=== PATIENT | female | born 1955 | race Caucasian/White ===

== ENCOUNTER 2017-12-22 22:44 | Inpatient (IN) | payer OTHER ==
[~2017-12-22] VITALS: Ht 154.9 cm; Wt 55.3 kg
[2017-12-22 23:35] VITALS: BP_SYST 120; BP_SYST 97; BP_DIAS 60; BP_DIAS 64
[2017-12-22 23:52] VITALS: BP 120/60
[2017-12-23] VITALS (7 sets, daily range): BP systolic 80–133; BP diastolic 58–79
[2017-12-23] MEDS: DOXYCYCLINE 100MG/NS 100ML 100 ML IV SCH ×2 (00:15→12:56)
[2017-12-23] MEDS ORDERED: DOCUSATE SODIU100 MG PO (01:38)
[2017-12-23] MEDS ORDERED: CLONAZEPAM1 MG PO (01:38)
[2017-12-23] MEDS ORDERED: ISOSORBIDE MONO20 MG PO (01:38)
[2017-12-23] MEDS ORDERED: CLONIDINE HCL0.1 MG PO (01:38)
[2017-12-23] MEDS ORDERED: BUPROPION HCL100 MG PO (01:38)
[2017-12-23] MEDS ORDERED: ADVAIR 250-501 EACH INH (01:38)
[2017-12-23] MEDS ORDERED: NIFEDIPINE10 MG PO (01:38)
[2017-12-23] MEDS ORDERED: ALBUTEROL0.63 MG/3 INH (01:38)
[2017-12-23] MEDS ORDERED: HYDRALAZINE HCL10 MG PO (01:38)
[2017-12-23] MEDS ORDERED: TRAMADOL HCL100 MG PO (01:38)
[2017-12-23] MEDS ORDERED: GABAPENTIN300 MG PO (01:38)
[2017-12-23] MEDS ORDERED: NEXIUM40 MG PO (01:38)
[2017-12-23] MEDS ORDERED: POTASSIUM CHLO10 MEQ PO (01:38)
[2017-12-23] MEDS: TRAMADOL HCL 50 MG TAB PO PRN ×3 (03:45→21:22)
[2017-12-23] MEDS: ALBUTEROL/IPRATROPIUM 3 ML NEB NEB SCH ×4 (03:55→19:25)
[2017-12-23 05:53] LABS: BASOPHILS % 0.2 % (0.0-1.0); HEMATOCRIT 26.1 % (34.2-44.1); HEMOGLOBIN 8.1 g/dL (12.0-16.0); LYMPHOCYTES # (AUTO) 0.3 (1.0-3.2); LYMPHOCYTES % 4.8 % (18.0-39.1); MEAN CORPUSCULAR HEMOGLOBIN 27.8 pg (28-32); MEAN CORPUSCULAR VOLUME 89.7 fL (81-99); MONOCYTES # (AUTO) 0.1 (0.2-0.8); MONOCYTES % 0.9 % (4.4-11.3); NEUTROPHILS # (AUTO) 5.3 (2.1-6.9); NEUTROPHILS % 93.6 % (38.7-80.0); PLATELET COUNT 202 x10e3/uL (140-360); RED BLOOD COUNT 2.91 x10e6/uL (3.6-5.1); RED CELL DISTRIBUTION WIDTH 20.5 % (11.7-14.4)
[2017-12-23 06:20] LABS: ALANINE AMINOTRANSFERASE 10 IU/L (0-55); ALBUMIN 3.2 g/dL (3.5-5.0); ALBUMIN/GLOBULIN RATIO 0.9 (0.8-2.0); ALKALINE PHOSPHATASE 86 IU/L (40-150); ANION GAP 16.9 mmol/L (8-16); BLOOD UREA NITROGEN 26 mg/dL (7-26); BUN/CREATININE RATIO 29 (6-25); CALCIUM 9.4 mg/dL (8.4-10.2); CARBON DIOXIDE 29 mmol/L (22-29); CHLORIDE 95 mmol/L (98-107); EST GLOMERULAR FILTRATION RATE > 60 ML/MIN (60-); GLUCOSE 161 mg/dL (74-118); POTASSIUM 4.9 mmol/L (3.5-5.1); SODIUM 136 mmol/L (136-145)
[2017-12-23] MEDS: METHYLPREDNISOLONE SOD SUCC 40 MG/ML VIAL IV SCH ×2 (09:00→21:08)
[2017-12-23] MEDS: SALMETEROL/FLUTICASONE 250/50 INH SCH (09:00)
[2017-12-23] MEDS: FUROSEMIDE INJ 10 MG/ML 2 ML VIAL IV SCH ×2 (09:00→22:00)
[2017-12-23] MEDS: HYDRALAZINE HCL 10 MG TAB PO SCH ×4 (09:01→21:00)
[2017-12-23] MEDS: DOCUSATE SODIUM 100 MG CAP PO SCH (09:01)
[2017-12-23] MEDS: CLONAZEPAM 1 MG TAB PO SCH ×2 (09:02→17:00)
[2017-12-23] MEDS: BUPROPION HCL 75 MG TAB PO SCH ×2 (09:02→17:00)
[2017-12-23] MEDS: ISOSORBIDE MONONITRATE 30 MG TAB CR PO SCH (09:02)
[2017-12-23] MEDS: PANTOPRAZOLE SOD 40 MG TABEC PO SCH (09:02)
[2017-12-23] MEDS: GABAPENTIN 300 MG CAP PO SCH ×3 (09:02→22:00)
[2017-12-23] MEDS: NIFEDIPINE CR 30 MG TAB PO SCH (09:02)
[2017-12-23] MEDS: POTASSIUM CHLORIDE 10 MEQ TABCR PO SCH (09:03)
--- NOTE | 2017-12-23 13:03 | Consultation ---
DATE OF CONSULTATION: December 23, 2017 PULMONARY/CRITICAL CARE CONSULTATION REFERRING PHYSICIAN: Dr. Yadi Hayward HISTORY OF PRESENT ILLNESS: The patient is a 62-year-old woman with a history of COPD. She uses oxygen at home. She has Advair as well as Spiriva and nebulizer. Over the past several days, she noticed worsening dyspnea that was not relieved with the nebulizer. She went to an urgent care. They performed an AP chest x-ray that showed a right-sided pleural effusion and possible congestive heart failure. The patient reports some cough productive of small amounts of phlegm. There was no chest pain. She is not having any fevers. She does not have any nausea or vomiting. She is not having any leg edema. PAST MEDICAL HISTORY 1. COPD. 2. Gastroesophageal reflux. 3. Hypertension. 4. The patient specifically denies any history of pulmonary embolism or deep vein thrombi. 5. Patient specifically denies any history of heart disease. She has never been checked by a timber girdler. PAST SURGICAL HISTORY 1. Status post hip surgery 3 years ago. 2. Status post cholecystectomy. SOCIAL HISTORY: She quit smoking 5 years ago. She drinks a small amount of beer at home. FAMILY HISTORY: Negative. REVIEW OF SYSTEMS: The patient has no fever. She has no headache. She has no neck pain. She is not having a sore throat. She does note some dyspnea and some cough. She is not having chest pain. She denies any abdominal pain. There is no nausea or vomiting. She denies hematochezia or melena. She denies hematemesis. There is no leg swelling. She has no focal neurological complaints. PHYSICAL EXAMINATION VITALS: Blood pressure is 115/60, and the pulse is 115. The saturation is 100% on 3 liters. HEENT: Examination shows no facial swelling or erythema. Nasal mucosa is normal. The oropharynx is normal. LYMPHATIC: No submandibular, cervical or supraclavicular adenopathy. NECK: No JVD or thyromegaly. There is no nuchal rigidity. CARDIAC: Regular rate and rhythm with normal S1 and S2. There are no murmurs or rubs. LUNGS: Auscultation of the lungs reveals decreased breath sounds at the right base. ABDOMEN: Soft, nontender. There is no rebound or guarding. EXTREMITIES: No leg edema or calf tenderness. There is no cyanosis or clubbing. SKIN: No rashes. NEUROLOGIC: No focal abnormalities. RADIOGRAPHIC DATA: Chest x-ray shows an AP film with a small to moderate size right pleural effusion. LABORATORY DATA: An ABG from the urgent care shows pH of 7.54, CO2 of 36 and O2 of 47. Bicarbonate is 31.1. The hemoglobin is 8.1 with an MCV of 89. Platelet count is 202. White blood cell count is 5.6. The creatinine is 0.9, and the BUN is 26. The other electrolytes are within normal limits. Albumin is 3.2. IMPRESSION 1. Chronic obstructive pulmonary disease with acute exacerbation. 2. Right pleural effusion of unclear etiology. 3. Acute systolic congestive heart failure. 4. Anemia secondary to chronic blood loss. 5. Hypertension. PLAN 1. The patient will have a CT scan of the chest with a PE protocol to evaluate the new right pleural effusion and x-ray changes. 2. Depending on the results of the CT scan, she may require a thoracentesis. 3. Cardiology evaluation. 4. Continue Advair, Spiriva and bronchodilators. 5. Solu-Medrol and antibiotics. 6. Evaluation for anemia. Job#: [id number]
[2017-12-23] MEDS: MAGNESIUM/ALUMINUM/SIMETHICONE 30 ML UDC PO PRN (17:00)
--- NOTE | 2017-12-23 18:14 | Diagnostic Imaging Report ---
PROCEDURE:US GUIDANCE FOR VASCULAR ACCESS COMPARISON:None. INDICATIONS:No IV access FINDINGS:Ultrasound evaluation of potential access sites was performed. After successfully identifying a patent vessel, US guidance was used to puncture the vein. A permanent recording was created for the patient record. CONCLUSION:Successful IV access by Ultrasound guidance. Oretses Wayne M.D. Dictated by: Orestes Wayne M.D. on 12/23/2017 at 18:19 Electronically approved by: Orestes Wayne M.D. on 12/23/2017 at 18:19
--- NOTE | 2017-12-23 18:39 | Consultation ---
DATE OF CONSULTATION: December 23, 2017 CARDIOLOGY CONSULTATION REASON FOR CONSULTATION: Heart failure. HISTORY OF PRESENT ILLNESS: This is a 62-year-old woman with a history of hypertension, prior tobacco use, gastroesophageal reflux disease, who presented to the emergency department with worsening shortness of breath and chest pain. The patient states that over the last few days after visiting her daughter in [place] developed substernal chest pain, occasional chest pressure and tightness. Some times described as a sharp and stabbing pain and associated with some worsening shortness of breath. The patient states that her dyspnea has progressed over the last few days and is worse than her usual baseline shortness of breath. The patient was evaluated at an urgent care facility, and was noted to have a right-sided pleural effusion, and was admitted here for higher level of care. She has no past cardiovascular history. She denies any history of myocardial infarctions, coronary artery disease, or heart failure. Reports stress test many years ago. However, cannot provide me with the details of her symptoms. In addition to the above-stated symptoms, she reports increased ankle swelling as well. REVIEW OF SYSTEMS: A 12-point review of systems was conducted and is negative other than mentioned in the HPI. PAST MEDICAL HISTORY: Chronic obstructive pulmonary disease, gastroesophageal reflux disease, hypertension. PAST SURGICAL HISTORY: Orthopedic hip surgery, cholecystectomy. FAMILY HISTORY: No premature CAD. SOCIAL HISTORY: Significant tobacco use in the past. Quit 5 years ago. Occasional alcohol use. No illicit drug use. ALLERGIES: PENICILLIN, CODEINE. MEDICATIONS: See medication reconciliation form. PHYSICAL EXAMINATION VITALS: Heart rate is 115, respirations 20, blood pressure 115/60, oxygen saturation is 100% on 3 L nasal cannula. GENERAL: She is a thin woman lying comfortably in bed. HEENT: Head is normocephalic and atraumatic. Eyes: Extraocular muscles intact. Conjunctivae are clear. NECK: No JVD. No bruits. CARDIOVASCULAR: She is tachycardic. Regular rhythm. No murmurs. Normal S1 and S2. LUNGS: Diminished breath sounds at bilateral bases with decreased air excursion. ABDOMEN: Soft, nontender and nondistended. EXTREMITIES: There is trace edema over the ankles. SKIN: Warm, dry and intact. NEUROLOGIC: No focal deficits noted. Cranial nerves grossly intact. PSYCHIATRIC: Normal mood and affect. LABORATORY DATA: White blood cell count 5.6, hemoglobin 8.1 and platelets 202,000. Sodium 136, potassium 4.9, creatinine 0.9. Normal liver function tests. Negative cardiac enzymes. BNP is 1090. Chest x-ray shows small to moderate right-sided pleural effusion. A 12-lead electrocardiogram shows sinus tachycardia with left axis deviation. IMPRESSION AND RECOMMENDATIONS 1. Shortness of breath: The patient likely has a component of acute heart failure of unknown type. Will check a 2-D echocardiogram to assess left ventricular function. The patient has been initiated on Lasix 20 mg intravenously q.12 h. and will continue this, and monitor her daily creatinine, electrolyte levels and her urinary output. Differential etiology likely could be related to her chronic obstructive pulmonary disease and/or right pleural effusion. A computerized tomography of the chest has been ordered to rule out pulmonary embolism, and assess the size of the pleural effusion. Will defer the need for thoracentesis to primary team. 2. Precordial pain: The patient has significant risk factors for coronary artery disease. First set of cardiac enzymes were within normal limits. A 12-lead electrocardiogram showed no acute S/T changes. Will check one additional set to rule out an acute myocardial infarction. Again, will check 2-D echocardiogram to assess left ventricular systolic function. 3. Hypertension: The patient is normotensive on current home medications, including nifedipine, isosorbide mononitrate, and clonidine at night. Would recommend discontinuation of clonidine and can titrate all other medications. 4. Anemia: Will defer treatment to primary team. No evidence of bleeding. Thank you for the consultation. Will check a 2-D echocardiogram to assess left ventricular function. Continue diuresis with intravenous Lasix. Job#: [id number] LIZ
[2017-12-23 19:23] LABS: CREATINE KINASE MB 0.9 ng/mL (0-5.0)
--- NOTE | 2017-12-23 19:27 | Diagnostic Imaging Report ---
PROCEDURE: CT scan of the chest WITH intravenous contrast, using standard protocol. TECHNIQUE: The chest was scanned utilizing a multidetector helical scanner from the lung apex through the level of the adrenal glands after the IV administration of 67 cc of Isovue 370. Coronal and sagittal multiplanar reformations were obtained. COMPARISON: None. INDICATIONS: PLEURAL EFFUSION, COPD, CONGESTIVE HEART FAILURE FINDINGS: Exam limited by mild breathing motion artifact. Lines/tubes: None. Lungs and Airways: No filling defects in the main, right or left pulmonary arteries to their segmental level to suggest pulmonary embolism. Unable to evaluate subsegmental levels. Moderate bilateral centrilobular emphysematous changes, predominantly in the upper lobes. Diffuse interlobular septal thickening in bilateral upper and lower lobes. Compressive atelectasis of the lower lobes bilaterally, right greater than left. Mild to moderate bronchial wall thickening in bilateral lower lobes. Airways are clear, without endobronchial lesions. Pleura: Small to moderate right pleural effusion which is partly loculated, with small amount of fluid in the major fissure (series 3, image 70). Small left pleural effusion. No pneumothorax. Heart and mediastinum: Thyroid is unremarkable. Moderate cardiomegaly with enlargement of both atria. Atherosclerotic calcification of the coronary arteries, aortic valves, thoracic aorta and mitral annulus. Main pulmonary artery is mildly enlarged, measuring 3.1 cm. Aorta is non-aneurysmal. Lymph nodes: Mildly enlarged subcarinal lymph node, which measures 1.3 cm in short axis (series 2, image 49). No other mediastinal or any hilar or axillary adenopathy. Abdomen: Limited contrast-enhanced views of the upper abdomen show no abnormality within the visualized liver, pancreas, or kidneys. Splenic calcified granulomas. The adrenal glands are normal. Moderate atherosclerotic calcification of the visualized abdominal aorta Bones: Multilevel degenerative disc changes in the thoracic spine. Generalized osteopenia. Mild decreased height of the T11 vertebral body. IMPRESSION: 1. No CT evidence of pulmonary embolism to the segmental level. Unable to assess subsegmental levels due to mild breathing motion artifact. 2. Diffuse interlobular septal thickening bilateral upper and lower lobes, suggesting interstitial pulmonary edema, likely cardiogenic given the moderate cardiomegaly/atrial enlargement. 3. Small to moderate right pleural effusion which is partly loculated. Small left pleural effusion. Compressive atelectasis of bilateral lower lobes, right greater than left. 4. Moderate diffuse bilateral centrilobular emphysematous changes, predominantly in the upper lobes. 5. Mild to moderate bronchial wall thickening in bilateral lower lobes, which may reflect sequela of chronic bronchitis. 6. Mild enlargement of the main pulmonary artery, likely reflecting pulmonary hypertension. Orestes Wayne M.D. Dictated by: Orestes Wayne M.D. on 12/23/2017 at 19:31 Electronically approved by: Orestes Wayne M.D. on 12/23/2017 at 19:31
[2017-12-23] MEDS ORDERED: CLONIDINE HCL 0.1 MG TAB PO SCH (21:00)
[2017-12-24] VITALS (7 sets, daily range): BP systolic 102–122; BP diastolic 63–79
[2017-12-24] MEDS ORDERED: SODIUM CHLORIDE 0.9% 50ML 50 ML ONE (00:37)
[2017-12-24] MEDS ORDERED: IOPAMIDOL 370 MG/ML 200 ML INFUS..BTL INJ ONE (00:38)
[2017-12-24] MEDS: DOXYCYCLINE 100MG/NS 100ML 100 ML IV SCH ×2 (00:45→12:48)
[2017-12-24] MEDS: ALBUTEROL/IPRATROPIUM 3 ML NEB NEB SCH ×4 (01:30→19:20)
[2017-12-24 05:50] LABS: HEMATOCRIT 26.2 % (34.2-44.1); LYMPHOCYTES # (AUTO) 0.4 (1.0-3.2); LYMPHOCYTES % 5.2 % (18.0-39.1); MEAN CORPUSCULAR HEMOGLOBIN 27.9 pg (28-32); MEAN CORPUSCULAR HGB CONC 30.5 g/dL (31-35); MEAN CORPUSCULAR VOLUME 91.3 fL (81-99); MONOCYTES # (AUTO) 0.3 (0.2-0.8); NEUTROPHILS # (AUTO) 6.3 (2.1-6.9); NEUTROPHILS % 90.1 % (38.7-80.0); PLATELET COUNT 239 x10e3/uL (140-360); RED BLOOD COUNT 2.87 x10e6/uL (3.6-5.1); RED CELL DISTRIBUTION WIDTH 20.5 % (11.7-14.4)
[2017-12-24 06:18] LABS: ALANINE AMINOTRANSFERASE 11 IU/L (0-55); ALBUMIN 3.3 g/dL (3.5-5.0); ALKALINE PHOSPHATASE 79 IU/L (40-150); ANION GAP 14.9 mmol/L (8-16); BLOOD UREA NITROGEN 32 mg/dL (7-26); BUN/CREATININE RATIO 36 (6-25); CALCIUM 9.7 mg/dL (8.4-10.2); CARBON DIOXIDE 34 mmol/L (22-29); CHLORIDE 94 mmol/L (98-107); CREATININE, SERUM 0.88 mg/dL (0.57-1.11); EST GLOMERULAR FILTRATION RATE > 60 ML/MIN (60-); GLUCOSE 106 mg/dL (74-118); POTASSIUM 4.9 mmol/L (3.5-5.1); SODIUM 138 mmol/L (136-145)
[2017-12-24] MEDS: TRAMADOL HCL 50 MG TAB PO PRN (06:47)
[2017-12-24] MEDS: FUROSEMIDE INJ 10 MG/ML 4 ML VIAL IV SCH ×2 (08:24→22:00)
[2017-12-24] MEDS: HYDRALAZINE HCL 10 MG TAB PO SCH (08:24)
[2017-12-24] MEDS: METHYLPREDNISOLONE SOD SUCC 40 MG/ML VIAL IV SCH ×2 (08:24→22:00)
[2017-12-24] MEDS: CLONAZEPAM 1 MG TAB PO SCH ×2 (08:25→17:35)
[2017-12-24] MEDS: DOCUSATE SODIUM 100 MG CAP PO SCH (08:25)
[2017-12-24] MEDS: PANTOPRAZOLE SOD 40 MG TABEC PO SCH (08:25)
[2017-12-24] MEDS: NIFEDIPINE CR 30 MG TAB PO SCH (08:25)
[2017-12-24] MEDS: GABAPENTIN 300 MG CAP PO SCH ×3 (08:25→21:28)
[2017-12-24] MEDS: ISOSORBIDE MONONITRATE 30 MG TAB CR PO SCH (08:25)
[2017-12-24] MEDS: POTASSIUM CHLORIDE 10 MEQ TABCR PO SCH (08:25)
[2017-12-24] MEDS: BUPROPION HCL 75 MG TAB PO SCH ×2 (08:25→17:35)
[2017-12-24] MEDS: MORPHINE SULFATE 2 MG/ML SYR IV PRN ×3 (08:53→20:25)
[2017-12-24] MEDS: SALMETEROL/FLUTICASONE 250/50 INH SCH (13:45)
[2017-12-25 00:10] VITALS: BP 102/88
[2017-12-25] MEDS: DOXYCYCLINE 100MG/NS 100ML 100 ML IV SCH ×3 (00:45→23:45)
[2017-12-25] MEDS: ZOLPIDEM TARTRATE 10 MG TAB PO PRN (00:45)
[2017-12-25] MEDS: ALBUTEROL/IPRATROPIUM 3 ML NEB NEB SCH ×4 (00:45→19:35)
--- NOTE | 2017-12-25 01:14 | Diagnostic Imaging Report ---
EXAMINATION: CHEST XRAY LINE PLACEMENT INDICATION: PICC line placement. COMPARISON: None FINDINGS: TUBES and LINES: Right upper extremity PICC line is visualized with tip overlying the mid SVC. LUNGS: Lungs are not well inflated. There are bibasilar atelectasis. There is mild prominence of the central pulmonary vasculature, consistent with pulmonary venous congestion. Interlobular septal thickening present in the lung bases. PLEURA: Bilateral pleural effusions right greater than left. HEART AND MEDIASTINUM: Cardiac size is moderately enlarged. There are atherosclerotic calcifications within the aorta. BONES AND SOFT TISSUES: No acute osseous lesion. Soft tissues are unremarkable. UPPER ABDOMEN: No free air under the diaphragm. IMPRESSION: Evidence of cardiogenic pulmonary edema and right pleural effusion. Right PICC line in good position. Signed by: Dr. Martin Jaquez M.D. on 12/25/2017 1:11 AM
[2017-12-25 04:59] VITALS: BP 105/85
[2017-12-25 05:01] LABS: HEMATOCRIT 24.4 % (34.2-44.1); HEMOGLOBIN 7.4 g/dL (12.0-16.0); LYMPHOCYTES # (AUTO) 0.3 (1.0-3.2); LYMPHOCYTES % 3.9 % (18.0-39.1); MEAN CORPUSCULAR HEMOGLOBIN 27.8 pg (28-32); MEAN CORPUSCULAR HGB CONC 30.3 g/dL (31-35); MEAN CORPUSCULAR VOLUME 91.7 fL (81-99); MONOCYTES # (AUTO) 0.2 (0.2-0.8); MONOCYTES % 2.4 % (4.4-11.3); NEUTROPHILS # (AUTO) 6.6 (2.1-6.9); PLATELET COUNT 246 x10e3/uL (140-360); RED BLOOD COUNT 2.66 x10e6/uL (3.6-5.1); RED CELL DISTRIBUTION WIDTH 20.4 % (11.7-14.4)
[2017-12-25 05:22] LABS: ALBUMIN 3.5 g/dL (3.5-5.0); ANION GAP 13.6 mmol/L (8-16); CALCIUM 9.6 mg/dL (8.4-10.2); CREATININE, SERUM 1.07 mg/dL (0.57-1.11); MAGNESIUM 1.7 MG/DL (1.3-2.1); POTASSIUM 4.6 mmol/L (3.5-5.1)
[2017-12-25 06:30] LABS: LYMPHOCYTES % (MANUAL) 5 % (19-48); MONOCYTES % (MANUAL) 3 % (3.4-9.0); NEUTROPHILS % (MANUAL) 92 % (40-74); PLATELET ESTIMATE ADEQUATE; RBC MORPHOLOGY COMMENT NORMAL
[2017-12-25 06:31] LABS: PLATELET MORPHOLOGY COMMENT NORMAL
--- NOTE | 2017-12-25 07:00 | Diagnostic Imaging Report ---
EXAMINATION: CHEST 2 VIEWS INDICATION: Congestive heart failure. COMPARISON: 12/25/2017 at 0026 hours FINDINGS: TUBES and LINES: Right upper extremity PICC line is in good position/stable LUNGS: Lungs are not well inflated. Bibasilar atelectasis There is mild prominence of the central pulmonary vasculature, consistent with pulmonary venous congestion. Interlobular septi thickening noted in the lung bases. PLEURA: Stable right pleural effusion, moderate HEART AND MEDIASTINUM: Cardiac size is mildly enlarged. There are atherosclerotic calcifications within the aorta. BONES AND SOFT TISSUES: No acute osseous lesion. Soft tissues are unremarkable. UPPER ABDOMEN: No free air under the diaphragm. IMPRESSION: Findings are compatible with mild cardiomegaly pulmonary edema, right pleural effusion and bibasilar atelectasis. Signed by: Dr. Martin Jaquez M.D. on 12/25/2017 6:56 AM
[2017-12-25] MEDS: SALMETEROL/FLUTICASONE 250/50 INH SCH (07:20)
[2017-12-25] MEDS ORDERED: SODIUM CHLORIDE 0.9% 250ML 250 ML IV ONE (07:45)
[2017-12-25 08:12] VITALS: BP 121/80
[2017-12-25] MEDS: BUPROPION HCL 75 MG TAB PO SCH ×2 (08:30→17:00)
[2017-12-25] MEDS: POTASSIUM CHLORIDE 10 MEQ TABCR PO SCH (08:30)
[2017-12-25] MEDS: DOCUSATE SODIUM 100 MG CAP PO SCH (08:30)
[2017-12-25] MEDS: GABAPENTIN 300 MG CAP PO SCH ×3 (08:30→21:00)
[2017-12-25] MEDS: METHYLPREDNISOLONE SOD SUCC 40 MG/ML VIAL IV SCH ×2 (08:30→21:00)
[2017-12-25] MEDS: PANTOPRAZOLE SOD 40 MG TABEC PO SCH (08:30)
[2017-12-25] MEDS: MORPHINE SULFATE 2 MG/ML SYR IV PRN ×3 (08:30→19:42)
[2017-12-25] MEDS: LISINOPRIL 10 MG TAB PO SCH (08:30)
[2017-12-25] MEDS: CLONAZEPAM 1 MG TAB PO SCH ×2 (08:30→17:00)
[2017-12-25] MEDS: FUROSEMIDE INJ 10 MG/ML 4 ML VIAL IV SCH ×2 (08:30→21:00)
[2017-12-25 11:39] LABS: HEMATOCRIT 23.7 % (34.2-44.1); HEMOGLOBIN 7.4 g/dL (12.0-16.0)
[2017-12-25 13:00] VITALS: BP 109/56
--- NOTE | 2017-12-25 13:05 | Progress Note ---
DATE: PULMONARY/CRITICAL CARE PROGRESS NOTE SUBJECTIVE: The patient was negative about 400 mL yesterday. She still has some dyspnea and congestion. She still has cough and small amounts of phlegm production. PHYSICAL EXAMINATION: VITAL SIGNS: The patient is afebrile. The blood pressure is 107/63 with the pulse 106. Saturation is 100% on 4 liters. HEENT: Shows no facial swelling or erythema. The oropharynx is normal. LYMPHATIC: Shows no submandibular, cervical, or supraclavicular adenopathy. CARDIAC: Reveals a regular rate and rhythm with a normal S1 and S2. There are no murmurs or rubs. LUNGS: Auscultation of the lungs reveals rhonchus breath sounds with wheezing bilaterally. ABDOMEN: Soft and nontender. There is no rebound or guarding. EXTREMITIES: Shows no leg edema or calf tenderness. Echocardiogram: There is some decreased left ventricular function with EF of about 45%. There is some tricuspid regurgitation and moderate pulmonary artery hypertension with an estimated systolic pulmonary artery hypertension of 57. IMPRESSION: 1. Acute systolic congestive heart failure. 2. Chronic obstructive pulmonary disease with acute exacerbation. 3. Anemia secondary to chronic blood loss. PLAN: 1. Continue diuretics. 2. Complete cardiac evaluation. 3. Repeat chest x-ray on Wednesday; if the right pleural effusion has not resolved with diuretics by Wednesday, then a thoracentesis would be indicated. 4. Consider blood transfusion. 5. Evaluation for anemia. 6. Nutritional evaluation for protein-calorie malnutrition; malnutrition worsens the prognosis in chronic obstructive pulmonary disease. 7. Physical therapy. 8. Case discussed with patient. Job#: [id number]
[2017-12-25] MEDS ORDERED: SODIUM CHLORIDE 0.9% 250ML 250 ML ONE (13:34)
[2017-12-25] MEDS ORDERED: FUROSEMIDE INJ 10 MG/ML 2 ML VIAL IV ONE (15:00)
--- NOTE | 2017-12-25 16:50 | Progress Note ---
DATE: INTERNAL MEDICINE PROGRESS NOTE SUBJECTIVE: Patient is complaining of shortness of breath. Getting a blood transfusion because the hemoglobin was very low. PHYSICAL EXAMINATION VITAL SIGNS: Blood pressure is 109/56. Temperature is 96.1. Heart rate 112 per minute. Respiratory rate is 22 per minute. Oxygen saturation is 98%. HEART: Regular rhythm. Normal S1, S2 sounds. LUNGS: Clear bilaterally, but significantly decreased. EXTREMITIES: No evidence of cyanosis, edema or trauma. ABDOMEN: Soft. Nontender. No distention. No visceromegaly. LABS: On the BMP, sodium 137, potassium 4.6, chloride 92, CO2 36, BUN 37, creatinine 1.07. On the CBC, white blood count 7.11, hemoglobin 7.4, hematocrit 23.7, platelet count 246,000. AST is 18, ALT 13, total bilirubin 0.3, alkaline phosphatase 76. FINAL IMPRESSION 1. Acute anemia, rule out gastrointestinal bleed. 2. Chronic obstructive pulmonary disease exacerbation. 3. Acute renal failure. 4. Astli-rq-cvgkmej systolic congestive heart failure. PLAN OF TREATMENT: Patient is getting 2 units of PRBCs. We are going to recheck the hemoglobin and hematocrit tomorrow. We are going to get stool guaiac, iron, TIBC, ferritin, vitamin B12 and folic acid level. Gastroenterology consult with Dr. Chris Hayward. Continue albuterol and Atrovent q.6 h., doxycycline 100 mg IV twice a day, bupropion 150 mg twice a day, clonazepam 1 mg twice a day as needed, potassium chloride 10 mEq daily, furosemide 40 mg IV twice a day, Colace 100 mg daily, Advair 1 inhalation twice a day, Solu-Medrol 30 mg IV twice a day. Continue Protonix 40 mg daily, Ambien 10 mg at night p.r.n. for sleep, morphine 2 mg IV q.4 h. as needed, gabapentin 300 mg 3 times a day, magnesium aluminum silicate 20 mg q.8 h. as needed, lisinopril 5 mg daily. Job#: [id number]
[2017-12-25 16:58] VITALS: BP 97/73
[2017-12-25 17:12] LABS: FERRITIN 23.14 ng/mL (4.63-204.00)
[2017-12-25] MEDS: MAGNESIUM/ALUMINUM/SIMETHICONE 30 ML UDC PO PRN (17:19)
[2017-12-25] MEDS ORDERED: FUROSEMIDE INJ 10 MG/ML 2 ML VIAL ONE (19:26)
[2017-12-25 20:00] VITALS: BP 102/78
[2017-12-26] VITALS (9 sets, daily range): BP systolic 84–117; BP diastolic 67–94
[2017-12-26] MEDS: ZOLPIDEM TARTRATE 10 MG TAB PO PRN (00:19)
[2017-12-26] MEDS ORDERED: MAGNESIUM SULFATE 2GM/50ML 50 ML IV ONE (02:45)
[2017-12-26 05:55] LABS: HEMATOCRIT 32.1 % (34.2-44.1); HEMOGLOBIN 10.2 g/dL (12.0-16.0); LYMPHOCYTES # (AUTO) 0.3 (1.0-3.2); LYMPHOCYTES % 5.2 % (18.0-39.1); MEAN CORPUSCULAR HGB CONC 31.8 g/dL (31-35); MONOCYTES # (AUTO) 0.3 (0.2-0.8); MONOCYTES % 5.1 % (4.4-11.3); NEUTROPHILS # (AUTO) 5.8 (2.1-6.9); NEUTROPHILS % 88.6 % (38.7-80.0); PLATELET COUNT 236 x10e3/uL (140-360); RED BLOOD COUNT 3.64 x10e6/uL (3.6-5.1); RED CELL DISTRIBUTION WIDTH 18.6 % (11.7-14.4)
[2017-12-26 06:08] LABS: MEAN CORPUSCULAR VOLUME 88.2 fL (81-99)
[2017-12-26] MEDS: DIPHENHYDRAMINE HCL 25 MG CAP PO PRN ×2 (06:20→21:29)
[2017-12-26 06:32] LABS: ALBUMIN 3.6 g/dL (3.5-5.0); ALBUMIN/GLOBULIN RATIO 1.1 (0.8-2.0); ANION GAP 13.5 mmol/L (8-16); CALCIUM 9.9 mg/dL (8.4-10.2); CREATININE, SERUM 1.05 mg/dL (0.57-1.11); POTASSIUM 4.5 mmol/L (3.5-5.1)
[2017-12-26] MEDS: MORPHINE SULFATE 2 MG/ML SYR IV PRN ×2 (06:41→19:13)
[2017-12-26] MEDS: ALBUTEROL/IPRATROPIUM 3 ML NEB NEB SCH ×4 (07:16→19:40)
[2017-12-26] MEDS: SALMETEROL/FLUTICASONE 250/50 INH SCH (08:10)
[2017-12-26 08:34] LABS: % IRON SATURATION 15 % (15-50); IRON 79 ug/dL (50-170); TOTAL IRON BINDING CAPACITY 510 ug/dL (261-478); TRANSFERRIN 364 mg/dL (180-382)
[2017-12-26] MEDS ORDERED: BISACODYL 10 MG SUPP PR ONE (09:00)
[2017-12-26] MEDS: BUPROPION HCL 75 MG TAB PO SCH ×2 (09:10→17:00)
[2017-12-26] MEDS: LISINOPRIL 10 MG TAB PO SCH (09:10)
[2017-12-26] MEDS: PANTOPRAZOLE SOD 40 MG TABEC PO SCH (09:10)
[2017-12-26] MEDS: POTASSIUM CHLORIDE 10 MEQ TABCR PO SCH (09:10)
[2017-12-26] MEDS: CLONAZEPAM 1 MG TAB PO SCH ×2 (09:10→17:00)
[2017-12-26] MEDS: FUROSEMIDE INJ 10 MG/ML 4 ML VIAL IV SCH ×2 (09:10→20:59)
[2017-12-26] MEDS: DOCUSATE SODIUM 100 MG CAP PO SCH (09:10)
[2017-12-26] MEDS: GABAPENTIN 300 MG CAP PO SCH ×3 (09:10→20:59)
[2017-12-26] MEDS: METHYLPREDNISOLONE SOD SUCC 40 MG/ML VIAL IV SCH ×2 (09:10→20:59)
[2017-12-26 09:16] LABS: LYMPHOCYTES % (MANUAL) 7 % (19-48); MONOCYTES % (MANUAL) 3 % (3.4-9.0); NEUTROPHILS % (MANUAL) 90 % (40-74); PLATELET ESTIMATE ADEQUATE; PLATELET MORPHOLOGY COMMENT NORMAL; RBC MORPHOLOGY COMMENT NORMAL
[2017-12-26] MEDS: DOXYCYCLINE 100MG/NS 100ML 100 ML IV SCH ×2 (11:45→22:39)
--- NOTE | 2017-12-26 15:49 | Progress Note ---
DATE: INTERNAL MEDICINE PROGRESS NOTE SUBJECTIVE: The patient is doing well with no significant complaint. PHYSICAL EXAMINATION VITAL SIGNS: Blood pressure 103/83. Temperature 96.4. Heart rate 109 per minute. Respiratory rate is 18 per minute. Oxygen saturation 95%. HEART: Regular rhythm. Normal S1 and S2 sounds. LUNGS: Decreased breath sounds bilaterally. ABDOMEN: Soft. BLOOD WORK: We have BMP with sodium 137, potassium 4.5, chloride 91, CO2 37, BUN 42, creatinine 1.05. Glucose 199. On the CBC, white blood count 6.50, hemoglobin 10.2, hematocrit 32.1, platelet count 236,000. ALT 26, ALT 19, total bilirubin 0.4, alkaline phos 95. FINAL IMPRESSION 1. Chronic obstructive pulmonary disease exacerbation. 2. History of chronic anemia, status post blood transfusion. 3. Irvmp-kw-fqvkvgs renal failure. 4. Unzho-ih-lnavaun systolic congestive heart failure. PLAN OF TREATMENT: Continue albuterol and Atrovent q.6 hours and doxycycline 100 mg IV twice a day. Continue bupropion 150 mg twice a day. Continue clonazepam 1 mg twice a day as needed for anxiety, potassium chloride 10 mEq daily, furosemide 40 mg IV twice a day, Benadryl 25 mg q.4 h. as needed for itching, Colace 100 mg daily, Advair 1 inhalation twice a day, methylprednisolone 30 mg IV twice a day, Protonix 40 mg daily, Ambien 10 mg at night p.r.n. for sleep, morphine 2 mg IV q.4 h. as needed, gabapentin 300 mg 3 times a day, magnesium aluminum silicate 20 mg q.8 h. as needed and lisinopril [address] Cervantes will resume the care tomorrow starting at 7 a.m. Job#: [id number]
[2017-12-26] MEDS ORDERED: SODIUM CHLORIDE 0.9% 250ML 250 ML ONE (21:18)
[2017-12-27] VITALS (8 sets, daily range): BP systolic 105–128; BP diastolic 66–88
[2017-12-27] MEDS: ALBUTEROL/IPRATROPIUM 3 ML NEB NEB SCH ×4 (00:45→18:52)
[2017-12-27] MEDS: MORPHINE SULFATE 2 MG/ML SYR IV PRN ×4 (01:29→21:00)
[2017-12-27 06:21] LABS: ANION GAP 12.2 mmol/L (8-16); BLOOD UREA NITROGEN 41 mg/dL (7-26); BUN/CREATININE RATIO 49 (6-25); CALCIUM 9.2 mg/dL (8.4-10.2); CARBON DIOXIDE 37 mmol/L (22-29); CHLORIDE 91 mmol/L (98-107); CREATININE, SERUM 0.83 mg/dL (0.57-1.11); EST GLOMERULAR FILTRATION RATE > 60 ML/MIN (60-); GLUCOSE 120 mg/dL (74-118); POTASSIUM 5.2 mmol/L (3.5-5.1); SODIUM 135 mmol/L (136-145)
[2017-12-27] MEDS: SALMETEROL/FLUTICASONE 250/50 INH SCH (07:30)
[2017-12-27] MEDS: POTASSIUM CHLORIDE 10 MEQ TABCR PO SCH (09:00)
[2017-12-27] MEDS: LISINOPRIL 10 MG TAB PO SCH (09:00)
[2017-12-27] MEDS: BUPROPION HCL 75 MG TAB PO SCH ×2 (09:00→17:20)
[2017-12-27] MEDS: CLONAZEPAM 1 MG TAB PO SCH ×2 (09:00→17:20)
[2017-12-27] MEDS: GABAPENTIN 300 MG CAP PO SCH ×3 (09:00→21:07)
[2017-12-27 10:14] LABS: BASOPHILS % 0.1 % (0.0-1.0); HEMATOCRIT 31.6 % (34.2-44.1); LYMPHOCYTES # (AUTO) 0.3 (1.0-3.2); LYMPHOCYTES % 4.8 % (18.0-39.1); MEAN CORPUSCULAR HEMOGLOBIN 28.7 pg (28-32); MEAN CORPUSCULAR HGB CONC 31.6 g/dL (31-35); MEAN CORPUSCULAR VOLUME 90.5 fL (81-99); MONOCYTES # (AUTO) 0.3 (0.2-0.8); MONOCYTES % 4.2 % (4.4-11.3); NEUTROPHILS # (AUTO) 6.4 (2.1-6.9); NEUTROPHILS % 90.5 % (38.7-80.0); PLATELET COUNT 228 x10e3/uL (140-360); RED BLOOD COUNT 3.49 x10e6/uL (3.6-5.1); RED CELL DISTRIBUTION WIDTH 18.5 % (11.7-14.4)
[2017-12-27] MEDS: FUROSEMIDE INJ 10 MG/ML 4 ML VIAL IV SCH ×2 (10:18→20:48)
[2017-12-27] MEDS: METHYLPREDNISOLONE SOD SUCC 40 MG/ML VIAL IV SCH ×2 (10:18→21:07)
[2017-12-27] MEDS ORDERED: FUROSEMIDE INJ 10 MG/ML 4 ML VIAL IV ONE (10:30)
[2017-12-27] MEDS: DOXYCYCLINE 100MG/NS 100ML 100 ML IV SCH (12:00)
--- NOTE | 2017-12-27 12:07 | Diagnostic Imaging Report ---
PROCEDURE: Frontal and lateral views of the chest. COMPARISON: None. INDICATIONS: CHF, COPD FINDINGS: Lines/tubes: Right sided PICC terminating near the cavoatrial junction. Lungs: Persistent mild perihilar opacities, consistent with mild interstitial edema. Patchy opacity in the right lower lung is again seen. Dependent left basilar atelectasis. Pleura: Persistent moderate right pleural effusion. Heart and mediastinum: The cardiomediastinal silhouette is unchanged. Bones: No acute bony abnormality. IMPRESSION: Persistent mild pulmonary interstitial edema and moderate right pleural effusion. Dependent bibasilar opacities likely atelectasis. Superimposed aspiration or pneumonia is possible in the right lower lobe in the appropriate clinical setting. Dictated by: ADITI TORRES M.D. on 12/27/2017 at 12:11 Electronically approved by: ADITI TORRES M.D. on 12/27/2017 at 12:11
--- NOTE | 2017-12-27 13:40 | Consultation ---
DATE OF CONSULTATION: December 27, 2017 CARDIOLOGY CONSULTATION REASON FOR CONSULTATION: Preoperative evaluation for EGD. CHIEF COMPLAINT: Chest pain and shortness of breath. HPI: Patient is a 62-year-old white female with an 80+ pack year smoking history and COPD on home oxygen, who initially presented to the hospital with COPD exacerbation. During this admission, her hemoglobin dropped from around 10 down to 7 acutely, and for this she is to undergo an EGD. We are consulted to assess her preoperative cardiovascular risk for her EGD. She denies any active chest pain. She does report shortness of breath. However, this is her baseline due to her severe COPD. She does endorse having chest pain at home intermittently. However, she only has this when she is eating during swallowing. It is not associated with exertion. She does not have any previous history of CAD, valvular heart disease or CHF. PAST MEDICAL HISTORY 1. COPD, on home oxygen. 2. Gastroesophageal reflux disease. 3. Hypertension. PAST SURGICAL HISTORY 1. Hip surgery. 2. Cholecystectomy. FAMILY HISTORY: No history of early CAD. SOCIAL HISTORY: Patient is an 80+ pack year smoker. Quit smoking cigarettes 5 years ago, but continues to inhale the electronic cigarettes currently. She does report social alcohol use. Denies any illicit drug use. MEDICATIONS 1. Furosemide 40 mg IV q.12 h. 2. Lisinopril 5 mg daily. LAB DATA: Reviewed. Notable for hemoglobin of 10 which is stable from 10.2 yesterday after transfusion. Chemistry shows potassium of 5.2, normal creatinine and elevated glucose of 120. She BNP on presentation was over 3000. Cardiac enzymes were negative on admission. PHYSICAL EXAMINATION VITAL SIGNS: Temperature 97.4, heart rate 104, respiratory rate 20, blood pressure 118/72, and satting 95% on 3 L nasal cannula. HEENT: Eyes: Conjunctival pallor. Ears, nose, mouth, and throat: Normal mucosa. No pallor or bleeding. NECK: No jugular venous distention. MSK: Normal muscle tone and strength. No atrophy or abnormal movements. EXTREMITIES: No clubbing or cyanosis. SKIN: No venostasis changes or ulcers. GENERAL: Cachectic white female. CARDIOVASCULAR: PMI nondisplaced. Tachy but regular. S1 and S2. No murmur, rubs or gallop. Normal carotid pulses. Palpable femoral pulses. Palpable pedal pulse on the left. No peripheral edema. Some varicosities on bilateral lower extremities. RESPIRATORY: Mild respiratory distress. Lungs are clear to auscultation, but very poor air movements. ABDOMEN: Soft and nontender. No hepatosplenomegaly. NEURO AND PSYCH: Patient is alert and oriented to person, place and time and has a normal affect. ECG reviewed shows sinus bradycardia, heart rate 100. No ST/T changes concerning for ischemia. TELEMETRY DATA: Reviewed and shows sinus rhythm with no significant arrhythmias. Echocardiogram final read pending. However, preliminary shows EF of about 45% with moderate MR and moderate TR. ASSESSMENT AND PLAN 1. Acute systolic and diastolic congestive heart failure. 2. Chest pain. 3. Hypertension. PLAN: From a cardiovascular standpoint, patient is a low risk for perioperative cardiovascular events for EGD and is okay to proceed. Her chest pain is likely of GI origin given that only occurs with food intake. Her volume status has improved after being diuresed IV Lasix. Will continue to follow medical treatment of her congestive heart failure going forward. Thank you for this consult. Will continue to follow. Job#: [id number] LIZ
[2017-12-27] MEDS: PANTOPRAZOLE SOD 40 MG TABEC PO SCH (16:43)
[2017-12-27] MEDS: FLUCONAZOLE 200 MG/100 ML 100 ML IV SCH (16:43)
[2017-12-27] MEDS: DOCUSATE SODIUM 100 MG CAP PO SCH (16:43)
--- NOTE | 2017-12-27 17:02 | Operative Report ---
DATE OF PROCEDURE: December 27, 2017 REFERRING PHYSICIAN: Dr. Shanell Nails. PROCEDURE PERFORMED: Esophagogastroduodenoscopy with biopsies and esophageal brushings and esophageal dilatation. INDICATIONS FOR EGD: Dysphagia, heartburn indigestion, guaiac positive stools. MEDICATION: Patient was done under MAC. Please see anesthesiologist's note. PROCEDURE: With patient in the left lateral decubitus position, flexible fiberoptic Olympus gastroscope was introduced into the esophagus under direct visualization without any difficulty. Scattered whitish plaques were noted pretty much throughout the esophagus and brushings were obtained to rule out jacqueline. Esophagus was then dilated to a size 52-Cypriot Dupont. The scope was then advanced with ease into the stomach, traversing a small sliding hiatal hernia. There were some minuet tongues of velvety-red mucosa extending proximally from the GE junction. Those were not biopsied. The scope was then advanced with ease into the stomach and mucosa overlying the antrum on the body revealed some patchy erythema and [id number] edema and biopsies were obtained sent to stain for H. pylori. Pylorus appeared to be of normal contour and shape, intubated with ease and the scope was advanced all the way to the 2nd portion of the duodenum. The scope was then withdrawn slowly. Mucosa overlying the proximal 2nd portion and the duodenal bulb appeared to be within normal limits. The scope was then withdrawn back into the stomach and retroflexed. The mucosa overlying the fundus and the cardia appeared to be within normal limits. The scope was then straightened out. The stomach was decompressed. The scope was subsequently withdrawn. Patient tolerated the procedure well. IMPRESSION 1. Rule out jacqueline esophagitis. 2. Esophagus dilated to a size 52-Cypriot Dupont. 3. Small sliding hiatal hernia. 4. Gastritis, biopsied. Biopsy sent to stain for Helicobacter pylori. PLAN: Follow up histology. Initiate Diflucan 200 mg p.o. daily. Job#: [id number] BETHANY cc:SHANELL NAILS MD
[2017-12-27] MEDS ORDERED: PROPOFOL IV EMULSION 10 MG/ML 20 ML VIAL ONE (17:45)
[2017-12-27] MEDS ORDERED: LIDOCAINE HCL 2% LOCAL INJ 5 ML SDV VIAL INJ ONE (17:45)
[2017-12-28] VITALS (7 sets, daily range): BP systolic 110–125; BP diastolic 67–88
[2017-12-28] MEDS: DOXYCYCLINE 100MG/NS 100ML 100 ML IV SCH ×3 (00:16→23:30)
[2017-12-28] MEDS: ZOLPIDEM TARTRATE 10 MG TAB PO PRN ×2 (00:36→22:13)
[2017-12-28] MEDS: ALBUTEROL/IPRATROPIUM 3 ML NEB NEB SCH ×4 (02:22→19:00)
[2017-12-28 06:20] LABS: ANION GAP 13.7 mmol/L (8-16); BLOOD UREA NITROGEN 39 mg/dL (7-26); BUN/CREATININE RATIO 42 (6-25); CALCIUM 9.6 mg/dL (8.4-10.2); CARBON DIOXIDE 39 mmol/L (22-29); CHLORIDE 90 mmol/L (98-107); CREATININE, SERUM 0.93 mg/dL (0.57-1.11); EST GLOMERULAR FILTRATION RATE > 60 ML/MIN (60-); GLUCOSE 175 mg/dL (74-118); POTASSIUM 4.7 mmol/L (3.5-5.1); SODIUM 138 mmol/L (136-145)
[2017-12-28 06:50] LABS: BASOPHILS % 0.1 % (0.0-1.0); HEMATOCRIT 37.2 % (34.2-44.1); HEMOGLOBIN 11.3 g/dL (12.0-16.0); LYMPHOCYTES # (AUTO) 0.3 (1.0-3.2); LYMPHOCYTES % 2.8 % (18.0-39.1); MEAN CORPUSCULAR HEMOGLOBIN 27.9 pg (28-32); MEAN CORPUSCULAR HGB CONC 30.4 g/dL (31-35); MEAN CORPUSCULAR VOLUME 91.9 fL (81-99); MONOCYTES # (AUTO) 0.5 (0.2-0.8); MONOCYTES % 3.8 % (4.4-11.3); NEUTROPHILS # (AUTO) 11.4 (2.1-6.9); NEUTROPHILS % 92.7 % (38.7-80.0); PLATELET COUNT 277 x10e3/uL (140-360); RED BLOOD COUNT 4.05 x10e6/uL (3.6-5.1); RED CELL DISTRIBUTION WIDTH 18.3 % (11.7-14.4)
[2017-12-28] MEDS: SALMETEROL/FLUTICASONE 250/50 INH SCH (08:05)
[2017-12-28] MEDS: LISINOPRIL 10 MG TAB PO SCH (09:00)
[2017-12-28] MEDS: FUROSEMIDE INJ 10 MG/ML 4 ML VIAL IV SCH ×2 (09:22→20:44)
[2017-12-28] MEDS: DOCUSATE SODIUM 100 MG CAP PO SCH (09:23)
[2017-12-28] MEDS: BUPROPION HCL 75 MG TAB PO SCH ×2 (09:23→17:37)
[2017-12-28] MEDS: PANTOPRAZOLE SOD 40 MG TABEC PO SCH (09:23)
[2017-12-28] MEDS: POTASSIUM CHLORIDE 10 MEQ TABCR PO SCH (09:23)
[2017-12-28] MEDS: METHYLPREDNISOLONE SOD SUCC 40 MG/ML VIAL IV SCH ×2 (09:23→20:44)
[2017-12-28] MEDS: GABAPENTIN 300 MG CAP PO SCH ×3 (09:23→20:44)
[2017-12-28] MEDS: CLONAZEPAM 1 MG TAB PO SCH ×2 (09:23→17:37)
[2017-12-28] MEDS ORDERED: FUROSEMIDE INJ 10 MG/ML 4 ML VIAL IV NR ×2 (13:30→18:45)
[2017-12-28] MEDS: MORPHINE SULFATE 2 MG/ML SYR IV PRN ×2 (14:45→20:28)
[2017-12-28] MEDS: FLUCONAZOLE 200 MG/100 ML 100 ML IV SCH (16:03)
[2017-12-28] MEDS: FUROSEMIDE INJ 10 MG/ML 4 ML VIAL IV NR (18:42)
[2017-12-29] VITALS (8 sets, daily range): BP systolic 106–126; BP diastolic 69–93
[2017-12-29] MEDS: ALBUTEROL/IPRATROPIUM 3 ML NEB NEB SCH (00:20)
[2017-12-29 06:15] LABS: BASOPHILS % 0.1 % (0.0-1.0); HEMATOCRIT 34.5 % (34.2-44.1); HEMOGLOBIN 10.7 g/dL (12.0-16.0); LYMPHOCYTES # (AUTO) 0.4 (1.0-3.2); LYMPHOCYTES % 3.4 % (18.0-39.1); MEAN CORPUSCULAR HEMOGLOBIN 27.9 pg (28-32); MEAN CORPUSCULAR VOLUME 90.1 fL (81-99); MONOCYTES # (AUTO) 0.3 (0.2-0.8); MONOCYTES % 2.8 % (4.4-11.3); NEUTROPHILS # (AUTO) 10.3 (2.1-6.9); NEUTROPHILS % 92.9 % (38.7-80.0); PLATELET COUNT 232 x10e3/uL (140-360); RED BLOOD COUNT 3.83 x10e6/uL (3.6-5.1); RED CELL DISTRIBUTION WIDTH 18.2 % (11.7-14.4)
--- NOTE | 2017-12-29 06:28 | Diagnostic Imaging Report ---
EXAM: CHEST 2 VIEWS, PA and lateral INDICATION: Follow-up COPD, CHF COMPARISON: PA and lateral view of the chest December 27, 2017 FINDINGS: LINES/TUBES: Stable position of right approach PICC LUNGS: Persistent bibasilar atelectasis. Vascular congestion and mild interstitial edema. PLEURA: Stable small right and trace left pleural effusions. HEART AND MEDIASTINUM: Stable cardiomegaly. BONES AND SOFT TISSUES: No acute findings. IMPRESSION: No significant interval change. Signed by: Dr. Stephanie Daugherty M.D. on 12/29/2017 6:25 AM
[2017-12-29 06:34] LABS: ALANINE AMINOTRANSFERASE 30 IU/L (0-55); ALBUMIN 3.5 g/dL (3.5-5.0); ALBUMIN/GLOBULIN RATIO 1.1 (0.8-2.0); ALKALINE PHOSPHATASE 73 IU/L (40-150); ANION GAP 13.7 mmol/L (8-16); BLOOD UREA NITROGEN 37 mg/dL (7-26); BUN/CREATININE RATIO 41 (6-25); CALCIUM 9.4 mg/dL (8.4-10.2); CHLORIDE 85 mmol/L (98-107); EST GLOMERULAR FILTRATION RATE > 60 ML/MIN (60-); GLUCOSE 158 mg/dL (74-118); POTASSIUM 4.7 mmol/L (3.5-5.1); SODIUM 138 mmol/L (136-145)
[2017-12-29 06:36] LABS: CARBON DIOXIDE 44 mmol/L (22-29)
[2017-12-29 07:07] LABS: LYMPHOCYTES % (MANUAL) 3 % (19-48); MONOCYTES % (MANUAL) 7 % (3.4-9.0); NEUTROPHILS % (MANUAL) 90 % (40-74); PLATELET ESTIMATE ADEQUATE; PLATELET MORPHOLOGY COMMENT NORMAL; RBC MORPHOLOGY COMMENT ABNORMAL
[2017-12-29 07:08] LABS: ANISOCYTOSIS SLIGHT; HYPOCHROMASIA SLIGHT; OVALOCYTES FEW
[2017-12-29] MEDS: SALMETEROL/FLUTICASONE 250/50 INH SCH (07:35)
[2017-12-29] MEDS: DOCUSATE SODIUM 100 MG CAP PO SCH (08:30)
[2017-12-29] MEDS: GABAPENTIN 300 MG CAP PO SCH ×3 (08:30→20:22)
[2017-12-29] MEDS: FUROSEMIDE INJ 10 MG/ML 4 ML VIAL IV SCH (08:30)
[2017-12-29] MEDS: BUPROPION HCL 75 MG TAB PO SCH ×2 (08:30→17:00)
[2017-12-29] MEDS: CLONAZEPAM 1 MG TAB PO SCH ×2 (08:30→17:00)
[2017-12-29] MEDS: LISINOPRIL 10 MG TAB PO SCH (08:30)
[2017-12-29] MEDS: PANTOPRAZOLE SOD 40 MG TABEC PO SCH (08:30)
[2017-12-29] MEDS: METHYLPREDNISOLONE SOD SUCC 40 MG/ML VIAL IV SCH ×2 (08:30→20:21)
[2017-12-29] MEDS: MORPHINE SULFATE 2 MG/ML SYR IV PRN ×2 (08:35→17:15)
[2017-12-29] MEDS ORDERED: FUROSEMIDE INJ 10 MG/ML 4 ML VIAL IV ONE ×2 (09:45→19:15)
[2017-12-29] MEDS: DOXYCYCLINE 100MG/NS 100ML 100 ML IV SCH ×2 (11:33→23:45)
--- NOTE | 2017-12-29 14:03 | Progress Note ---
DATE: December 28, 2017 CARDIOLOGY PROGRESS NOTE SUBJECTIVE: Patient underwent EGD yesterday, found to have gastritis but no other obvious source of bleeding. REVIEW OF SYSTEMS: Patient reports some shortness of breath, pain upon swallowing, but otherwise review of systems is negative. OBJECTIVE VITAL SIGNS: Temperature 97.1, heart rate 107, respiratory rate 20, blood pressure 123/82, satting 98% on room air. GENERAL: Cachectic elderly white female. CARDIOVASCULAR: PMI nondisplaced. Tachycardic but regular S1 and S2. No murmur, rubs or gallops. Palpable carotid pulses, palpable femoral pulses, palpable pedal pulses. RESPIRATORY: In mild respiratory distress. Diffuse inspiratory and expiratory wheezing heard bilaterally. Diminished lung sounds right lower lobe. ABDOMEN: Soft, nontender, nondistended. No masses or hepatosplenomegaly. NEURO AND PSYCH: Patient is alert and oriented to person, place and time. Normal affect. LABORATORY DATA: Reviewed. Hemoglobin increased from 7.4 to 11.3 after transfusion. IMAGING: Imaging data reviewed. TELEMETRY: Telemetry data reviewed. Shows sinus rhythm with occasional sinus tachycardia. ASSESSMENT 1. Acute congestive heart failure. 2. Chronic obstructive pulmonary disease exacerbation. 3. Suspected acute gastrointestinal bleeding. 4. Chest pain upon swallowing. 5. Hypertension. PLAN: Patient underwent EGD yesterday without any complications. No obvious source of bleeding was found. Her hemoglobin increased appropriately with a blood transfusion. She does feel a little bit more short of breath today. Recommend continuing her diuresis with furosemide 40 mg IV twice a day. Given her severe COPD currently in exacerbation, will hold off on starting any beta blockers. Patient has been started on lisinopril 5 mg daily for her cardiomyopathy. EF on echocardiogram noted to be just mildly depressed at 45% with moderate TR and MR. Will continue to follow her medical treatment of CHF and volume status. Thank you for this consult. Will continue to follow. Job#: [id number] EV
[2017-12-29] MEDS: FLUCONAZOLE 200 MG/100 ML 100 ML IV SCH (15:30)
[2017-12-29] MEDS: GUAIFENESIN 600 MG TAB PO SCH (17:00)
[2017-12-29] MEDS: ACETAZOLAMIDE SODIUM 500 MG/VIAL IV SCH (17:56)
[2017-12-29] MEDS: DIPHENHYDRAMINE HCL 25 MG CAP PO PRN (20:23)
--- NOTE | 2017-12-29 20:39 | Progress Note ---
DATE: December 29, 2017 CARDIOLOGY PROGRESS NOTE SUBJECTIVE: Her breathing is still short. However, feels a little bit better today compared to yesterday. Has aches and pains all over. No nausea, vomiting. No chest pain or pressure. No syncope or presyncope or palpitations. REVIEW OF SYSTEMS: As above, otherwise negative. OBJECTIVE VITAL SIGNS: Temperature 96.0, heart rate 93, respiratory rate 20, blood pressure 122/80, satting 99% on 3 liters nasal cannula. GENERAL: Cachectic, elderly, white female. CARDIOVASCULAR: PMI diffuse and sustained, tachycardiac. Normal S1 and S2. A 2/6 holosystolic murmur heard at the base as well as at the apex. Palpable carotid pulses. Palpable pedal pulses. RESPIRATORY: Mild respiratory distress. Lungs are clear to auscultation, but very poor air movement. ABDOMEN: Soft, nontender, nondistended. No hepatosplenomegaly. EXTREMITIES: No lower extremity edema. Diffuse bruising bilateral upper and lower extremities. LABORATORY DATA: Reviewed. Hemoglobin remained stable at 10.7. Chemistry: Creatinine remained stable at 0.90. BNP checked yesterday was 3711. It is slightly increased from her presentation BNP of 3000.3. IMAGING DATA: Reviewed. Chest x-ray shows no significant interval change since yesterday with persistent mild pulmonary interstitial edema and moderate right pleural effusion. MEDICATIONS: Lisinopril 5 mg daily, furosemide 40 mg IV daily. ASSESSMENT 1. Acute systolic congestive heart failure. 2. Severe chronic obstructive pulmonary disease exacerbation. 3. Suspected gastrointestinal bleeding. 4. Hypertension. 5. Moderate tricuspid regurgitation. 6. Moderate mitral regurgitation. PLAN: The patient underwent EGD which did not show any obvious sources of bleeding. It just showed gastritis. Hemoglobin has been stable at 10.3 since then. However, she has received several units of packed RBCs in the meantime for her anemia, and as a result her CHF has exacerbated somewhat. Will increase her diuretic regimen from 40 mg IV once a day to 80 mg IV twice a day and assess response. The patient was a long-time smoker and is at risk for peripheral arterial disease as well as coronary artery disease as a source of her cardiomyopathy. However, given recent bleeding without any obvious source, the patient is not a candidate for any invasive management of CAD as this would require short and long-term anticoagulation. I have discussed this with the patient and she understands unless she has acute coronary syndrome or unstable angina, will manage her cardiomyopathy conservatively with medications until she is deemed safe for long-term dual antiplatelet therapy. Thank you for this consult. Will continue to follow. Job#: [id number] JOELLEN
[2017-12-30] VITALS (7 sets, daily range): BP systolic 104–135; BP diastolic 82–98
[2017-12-30] MEDS: MORPHINE SULFATE 2 MG/ML SYR IV PRN ×3 (05:46→21:11)
[2017-12-30 06:45] LABS: HEMATOCRIT 34.6 % (34.2-44.1); HEMOGLOBIN 10.8 g/dL (12.0-16.0); LYMPHOCYTES # (AUTO) 0.3 (1.0-3.2); LYMPHOCYTES % 2.7 % (18.0-39.1); MEAN CORPUSCULAR HGB CONC 31.2 g/dL (31-35); MEAN CORPUSCULAR VOLUME 89.6 fL (81-99); MONOCYTES # (AUTO) 0.2 (0.2-0.8); MONOCYTES % 1.7 % (4.4-11.3); NEUTROPHILS # (AUTO) 10.9 (2.1-6.9); PLATELET COUNT 220 x10e3/uL (140-360); RED BLOOD COUNT 3.86 x10e6/uL (3.6-5.1); RED CELL DISTRIBUTION WIDTH 17.9 % (11.7-14.4)
[2017-12-30 07:06] LABS: ALBUMIN 3.4 g/dL (3.5-5.0); ALBUMIN/GLOBULIN RATIO 1.1 (0.8-2.0); ANION GAP 14.6 mmol/L (8-16); CALCIUM 9.2 mg/dL (8.4-10.2); CREATININE, SERUM 0.95 mg/dL (0.57-1.11); POTASSIUM 3.6 mmol/L (3.5-5.1)
[2017-12-30] MEDS: SALMETEROL/FLUTICASONE 250/50 INH SCH (07:38)
[2017-12-30 08:11] LABS: EOSINOPHILS % (MANUAL) 1 % (0-7); LYMPHOCYTES % (MANUAL) 2 % (19-48); MONOCYTES % (MANUAL) 2 % (3.4-9.0); NEUTROPHILS % (MANUAL) 95 % (40-74)
[2017-12-30 08:12] LABS: HYPOCHROMASIA SLIGHT; PLATELET ESTIMATE ADEQUATE; PLATELET MORPHOLOGY COMMENT NORMAL; RBC MORPHOLOGY COMMENT NORMAL
[2017-12-30] MEDS: FUROSEMIDE INJ 10 MG/ML 4 ML VIAL IV SCH (09:00)
[2017-12-30] MEDS: LISINOPRIL 10 MG TAB PO SCH (09:00)
[2017-12-30] MEDS: DOCUSATE SODIUM 100 MG CAP PO SCH (09:00)
[2017-12-30] MEDS: METHYLPREDNISOLONE SOD SUCC 40 MG/ML VIAL IV SCH ×2 (09:00→21:00)
[2017-12-30] MEDS: CARVEDILOL 3.125 MG TAB PO SCH ×2 (09:00→17:00)
[2017-12-30] MEDS: GABAPENTIN 300 MG CAP PO SCH ×3 (09:00→21:00)
[2017-12-30] MEDS: PANTOPRAZOLE SOD 40 MG TABEC PO SCH (09:00)
[2017-12-30] MEDS: BUPROPION HCL 75 MG TAB PO SCH ×2 (09:00→17:00)
[2017-12-30] MEDS: ACETAZOLAMIDE SODIUM 500 MG/VIAL IV SCH (09:00)
[2017-12-30] MEDS: GUAIFENESIN 600 MG TAB PO SCH ×2 (09:00→17:00)
[2017-12-30] MEDS ORDERED: FUROSEMIDE INJ 10 MG/ML 4 ML VIAL IV ONE (09:45)
--- NOTE | 2017-12-30 15:00 | Progress Note ---
DATE: December 30, 2017 CARDIOLOGY PROGRESS NOTE SUBJECTIVE: No major events overnight. The patient is feeling significantly better today. Able to walk around in the hallways with her walker with her baseline shortness of breath. Overall, still feels weak since she has been hospitalized, but her breathing is better than yesterday. Denies any chest pain, palpitations or syncopal episodes. REVIEW OF SYSTEMS: As above, otherwise negative. OBJECTIVE VITAL SIGNS: Temperature 95.5, pulse 91, respiratory rate 18, blood pressure 135/90, satting 97% on 3 L nasal cannula. LABORATORY DATA: Reviewed. Hemoglobin is stable at 10.8. IMAGING DATA: Reviewed. Telemetry data reviewed. It shows sinus rhythm with occasional sinus tachycardia. ASSESSMENT AND PLAN 1. Acute systolic congestive heart failure. 2. Severe chronic obstructive pulmonary disease exacerbation. 3. Suspected gastrointestinal bleeding. 4. Hypertension. 5. Moderate tricuspid regurgitation. 6. Moderate mitral regurgitation. PLAN: Her hemoglobin remains stable at 10.3. Her volume status has improved significantly after receiving several high doses of IV Lasix yesterday and this morning. Small doses of carvedilol and lisinopril have been started for medical therapy for her heart failure. Given her new diagnosis of cardiomyopathy with EF of 35% to 40%, an ischemic evaluation will be done once the patient's hemoglobin has been stable for a period of time given her acute anemia episode. Currently, the risk of any coronary intervention would outweigh any benefits given that she does not have any symptoms of unstable angina or ACS. Will continue to follow. Thank you for this consult. Job#: [id number] LIZ
[2017-12-30] MEDS: FLUCONAZOLE 200 MG/100 ML 100 ML IV SCH (15:20)
[2017-12-30] MEDS: ASPIRIN 81 MG CHEW TAB PO SCH (15:20)
--- NOTE | 2017-12-30 16:18 | Progress Note ---
DATE: PULMONARY CRITICAL CARE PROGRESS NOTE The patient reports some improvement since yesterday. She has been receiving Solu-Medrol and antibiotics. OBJECTIVE VITAL SIGNS: Stable. HEENT: Examination shows no facial swelling or erythema. The nasal mucosa is normal. CHEST: There is no chest pain. HEART: She has a regular rate and rhythm with a normal S1 and S2. LUNGS: Auscultation of the lungs reveals a prolonged expiratory phase and wheezing bilaterally. There are some crackles at the bases. EXTREMITIES: There is no leg edema. NEUROLOGIC: Exam shows no focal abnormalities. IMPRESSIONS 1. Acute systolic congestive heart failure with a decreased ejection fraction on echocardiogram. 2. Chronic obstructive pulmonary disease with acute exacerbation. 3. Anemia secondary to chronic blood loss. PLANS 1. Continue Solu-Medrol and bronchodilators. 2. The patient is currently on Lasix and Diamox. 3. Repeat CMP and chest x-ray in the morning. 4. Cardiology has mentioned an evaluation for coronary artery disease when the patient is more stable. Job#: [id number] DOLORES
[2017-12-30] MEDS: MAGNESIUM/ALUMINUM/SIMETHICONE 30 ML UDC PO PRN (17:15)
[2017-12-30] MEDS ORDERED: METOPROLOL TARTRATE INJ 1 MG/ML VIAL IV PRN (17:30)
[2017-12-30] MEDS: ATORVASTATIN 20 MG TAB PO SCH (21:00)
[2017-12-31] VITALS: BP 125/91
[2017-12-31 04:00] VITALS: BP 103/76
[2017-12-31] MEDS: SALMETEROL/FLUTICASONE 250/50 INH SCH (06:51)
[2017-12-31 08:02] VITALS: BP 132/76
[2017-12-31] MEDS: METHYLPREDNISOLONE SOD SUCC 40 MG/ML VIAL IV SCH ×2 (08:12→21:00)
[2017-12-31] MEDS: PANTOPRAZOLE SOD 40 MG TABEC PO SCH (08:12)
[2017-12-31] MEDS: GUAIFENESIN 600 MG TAB PO SCH ×2 (08:12→17:16)
[2017-12-31] MEDS: DOCUSATE SODIUM 100 MG CAP PO SCH (08:12)
[2017-12-31] MEDS: ASPIRIN 81 MG CHEW TAB PO SCH (08:12)
[2017-12-31] MEDS: CARVEDILOL 3.125 MG TAB PO SCH (08:12)
[2017-12-31] MEDS: LISINOPRIL 10 MG TAB PO SCH (08:12)
[2017-12-31] MEDS: BUPROPION HCL 75 MG TAB PO SCH ×2 (08:12→17:16)
[2017-12-31] MEDS: FUROSEMIDE INJ 10 MG/ML 4 ML VIAL IV SCH ×3 (08:12→22:00)
[2017-12-31] MEDS: ACETAZOLAMIDE SODIUM 500 MG/VIAL IV SCH (08:12)
[2017-12-31] MEDS: MORPHINE SULFATE 2 MG/ML SYR IV PRN ×2 (08:12→15:21)
[2017-12-31] MEDS: GABAPENTIN 300 MG CAP PO SCH ×3 (08:12→21:00)
[2017-12-31 08:34] LABS: BASOPHILS % 0.1 % (0.0-1.0); HEMATOCRIT 37.1 % (34.2-44.1); HEMOGLOBIN 11.8 g/dL (12.0-16.0); LYMPHOCYTES # (AUTO) 0.5 (1.0-3.2); LYMPHOCYTES % 3.8 % (18.0-39.1); MEAN CORPUSCULAR HEMOGLOBIN 28.1 pg (28-32); MEAN CORPUSCULAR HGB CONC 31.8 g/dL (31-35); MEAN CORPUSCULAR VOLUME 88.3 fL (81-99); MONOCYTES # (AUTO) 0.6 (0.2-0.8); MONOCYTES % 5.1 % (4.4-11.3); NEUTROPHILS # (AUTO) 10.5 (2.1-6.9); PLATELET COUNT 289 x10e3/uL (140-360)
[2017-12-31 08:55] LABS: ALANINE AMINOTRANSFERASE 30 IU/L (0-55); ALBUMIN 3.3 g/dL (3.5-5.0); ALBUMIN/GLOBULIN RATIO 1.1 (0.8-2.0); ALKALINE PHOSPHATASE 66 IU/L (40-150); ANION GAP 15.5 mmol/L (8-16); BLOOD UREA NITROGEN 43 mg/dL (7-26); BUN/CREATININE RATIO 49 (6-25); CALCIUM 9.2 mg/dL (8.4-10.2); CARBON DIOXIDE 37 mmol/L (22-29); CHLORIDE 85 mmol/L (98-107); CREATININE, SERUM 0.87 mg/dL (0.57-1.11); EST GLOMERULAR FILTRATION RATE > 60 ML/MIN (60-); GLUCOSE 110 mg/dL (74-118); POTASSIUM 3.5 mmol/L (3.5-5.1); SODIUM 134 mmol/L (136-145)
--- NOTE | 2017-12-31 09:32 | Diagnostic Imaging Report ---
PROCEDURE: Frontal and lateral views of the chest. COMPARISON: Chest radiograph 12/29/17. INDICATIONS: COPD, CHF FINDINGS: Lines/tubes: Right sided PICC with tip terminating near the cavoatrial junction. Lungs and pleura: Persistent small partially loculated right pleural effusion with patchy right basilar opacity. No evidence of pulmonary edema or pneumothorax. Patchy left basilar atelectasis. Emphysematous changes of the lungs. Heart and mediastinum: Stable mild enlargement of the cardiomediastinal silhouette. Bones: No acute bony abnormality. IMPRESSION: Small partially loculated right pleural effusion with patchy right basilar opacity, likely atelectasis. No new consolidation to suggest pneumonia. No evidence of pulmonary edema. Dictated by: ADITI TORRES M.D. on 12/31/2017 at 9:37 Electronically approved by: ADITI TORRES M.D. on 12/31/2017 at 9:37
[2017-12-31 10:41] VITALS: BP 132/76
[2017-12-31] MEDS ORDERED: POTASSIUM CHLORIDE 10 MEQ TABCR PO NR (11:30)
[2017-12-31] MEDS ORDERED: LORAZEPAM 0.5 MG TAB PO ONE (11:45)
[2017-12-31] MEDS ORDERED: LORAZEPAM 0.5 MG TAB PO PRN (11:45)
[2017-12-31 12:39] VITALS: BP 112/76
[2017-12-31] MEDS: FLUCONAZOLE 200 MG/100 ML 100 ML IV SCH (15:22)
--- NOTE | 2017-12-31 16:18 | Progress Note ---
DATE: December 31, 2017 CARDIOLOGY PROGRESS NOTE SUBJECTIVE: The patient had AFib with RVR yesterday. Overall she feels a little better. Shortness of breath is getting a little bit better but largely unchanged from yesterday. No evidence of bleeding. No chest pain. Discussions ongoing regarding possible hospice. REVIEW OF SYSTEMS: Is as above, otherwise negative. OBJECTIVE VITAL SIGNS: Temperature 96.2, pulse 92, respiratory rate 18, blood pressure 112/76, saturations 99% on nasal cannula 3 liters. GENERAL: Very cachectic, thin, elderly white female. CARDIOVASCULAR: PMI nondisplaced. Irregular rhythm. Normal S1 and S2. No murmurs, rubs, or gallops. Palpable carotid pulses. Palpable pedal pulses. RESPIRATORY: Diffuse expiratory wheezing. No crackles. Mild respiratory distress. ABDOMEN: Soft, nontender, nondistended. NEURO AND PSYCH: Alert and oriented to person, place and time. Normal affect. LABORATORY DATA: Reviewed. IMAGING DATA: Reviewed. TELEMETRY DATA: Reviewed, shows atrial fibrillation with episodes of rapid ventricular response occasional. Conversion to sinus. ASSESSMENT AND PLAN 1. Acute systolic congestive heart failure. 2. Paroxysmal atrial fibrillation with rapid ventricular response. 3. Severe chronic obstructive pulmonary disease. 4. Suspected gastrointestinal bleeding. 5. Anemia. 6. Hypertension. 7. Moderate tricuspid regurgitation. 8. Moderate mitral regurgitation. PLAN: Patient has multiple comorbidities and is very frail. Will continue managing her CHF exacerbation with the current diuretic regimen and her volume status has improved somewhat in the last couple of days. She has paroxysmal atrial fibrillation at this point however, given a recent episode of anemia, she is not a candidate for anticoagulation at this time. Continue aspirin 81 mg for now. Rate control with metoprolol 25 mg q.6 hours if she can tolerate that from her COPD perspective. Will continue to follow closely. Agree with ongoing discussions regarding comfort care. Thank you for this consult. Job#: [id number] DEJA
[2017-12-31] MEDS: METOPROLOL TARTRATE 25 MG TAB PO SCH (17:17)
--- NOTE | 2017-12-31 18:45 | Diagnostic Imaging Report ---
PROCEDURE: CT CHEST WITHOUT CONTRAST CT scan of the chest WITHOUT intravenous contrast, using standard protocol. TECHNIQUE: The chest was scanned utilizing a multidetector helical scanner from the apex to the level of the adrenal glands. No IV contrast was administered. Coronal and sagittal multiplanar reformations were obtained. COMPARISON: CT of the chest from 12/23/2017. A chest radiograph from 12/31/2017 INDICATIONS: SOB, COPD, CHF FINDINGS: Lines/tubes: Right upper extremity PICC line has its tip in in the low SVC. Lungs and Airways: Since the prior examination on 12/23/2017, the degree of diffuse interlobular septal thickening has decreased. Subsegmental atelectasis and scarlike opacities in the lung bases, right middle lobe, and lingula. Moderate centrilobular emphysema, unchanged. Mild central bronchial wall thickening is unchanged and may be related to chronic bronchitis. An 8mm irregular focal opacity in the right lung apex (series 3, image 23) has the appearance of a scar. Pleura: The left pleural effusion has resolved. The loculated right pleural effusion has decreased in size. No pneumothorax. Heart and mediastinum: The thyroid gland is normal. No significant mediastinal, hilar or axillary lymphadenopathy is seen. Mild cardiomegaly with biatrial enlargement. There are atherosclerotic calcifications of the coronary arteries and thoracic aorta. Calcifications of the mitral annulus, unchanged. The main pulmonary artery is mildly dilated, measuring 3.3 cm. Soft tissues: Normal. Abdomen: Limited views of the upper abdomen show no specific abnormality. Bones: Multilevel degenerative changes of the thoracic spine. Mild compression deformities at T12 and T6 are unchanged. IMPRESSION: Findings of volume overload have improved since the prior examination. Specifically, the degree of interlobular septal thickening has decreased. The pleural effusions are smaller. Centrilobular emphysema and central bronchial wall thickening is unchanged. An 8 mm irregular focal opacity in the right lung apex likely represents a scar. Recommend attention on followup. Dictated by: Cain Younger M.D. on 12/31/2017 at 18:50 Electronically approved by: Cain Younger M.D. on 12/31/2017 at 18:50
[2017-12-31 20:00] VITALS: BP 113/76
[2017-12-31] MEDS: ATORVASTATIN 20 MG TAB PO SCH (21:00)
[2018-01-01] VITALS (7 sets, daily range): BP systolic 106–117; BP diastolic 68–87
[2018-01-01] MEDS: FUROSEMIDE INJ 10 MG/ML 4 ML VIAL IV SCH ×2 (05:46→17:52)
[2018-01-01] MEDS: METOPROLOL TARTRATE 25 MG TAB PO SCH ×4 (05:47→17:52)
[2018-01-01 06:55] LABS: BASOPHILS % 0.1 % (0.0-1.0); HEMATOCRIT 35.2 % (34.2-44.1); LYMPHOCYTES # (AUTO) 0.3 (1.0-3.2); LYMPHOCYTES % 2.4 % (18.0-39.1); MEAN CORPUSCULAR HGB CONC 31.3 g/dL (31-35); MEAN CORPUSCULAR VOLUME 89.6 fL (81-99); MONOCYTES # (AUTO) 0.6 (0.2-0.8); MONOCYTES % 4.2 % (4.4-11.3); NEUTROPHILS # (AUTO) 12.8 (2.1-6.9); PLATELET COUNT 263 x10e3/uL (140-360); RED BLOOD COUNT 3.93 x10e6/uL (3.6-5.1)
[2018-01-01 07:09] LABS: ANION GAP 14.7 mmol/L (8-16); CALCIUM 9.2 mg/dL (8.4-10.2); CREATININE, SERUM 1.14 mg/dL (0.57-1.11); POTASSIUM 3.7 mmol/L (3.5-5.1)
[2018-01-01] MEDS: SALMETEROL/FLUTICASONE 250/50 INH SCH (07:40)
[2018-01-01] MEDS: ASPIRIN 81 MG CHEW TAB PO SCH (08:35)
[2018-01-01] MEDS: METHYLPREDNISOLONE SOD SUCC 40 MG/ML VIAL IV SCH ×2 (08:35→20:57)
[2018-01-01] MEDS: LISINOPRIL 10 MG TAB PO SCH (08:35)
[2018-01-01] MEDS: GUAIFENESIN 600 MG TAB PO SCH ×2 (08:35→17:52)
[2018-01-01] MEDS: DOCUSATE SODIUM 100 MG CAP PO SCH (08:35)
[2018-01-01] MEDS: BUPROPION HCL 75 MG TAB PO SCH ×2 (08:35→17:52)
[2018-01-01] MEDS: ACETAZOLAMIDE SODIUM 500 MG/VIAL IV SCH (08:35)
[2018-01-01] MEDS: GABAPENTIN 300 MG CAP PO SCH ×3 (08:35→20:57)
[2018-01-01] MEDS: PANTOPRAZOLE SOD 40 MG TABEC PO SCH (08:35)
[2018-01-01] MEDS: MORPHINE SULFATE 2 MG/ML SYR IV PRN ×2 (09:46→19:13)
[2018-01-01] MEDS: ALBUTEROL/IPRATROPIUM 3 ML NEB NEB PRN ×4 (11:27→22:50)
--- NOTE | 2018-01-01 13:51 | Progress Note ---
DATE: January 01, 2018 CARDIOLOGY PROGRESS NOTE SUBJECTIVE: The patient denies chest pain. She reports her shortness of breath is better. However, she does not feel well. OBJECTIVE VITAL SIGNS: Temperature 95.7 degrees, pulse 95, respiratory rate 20, blood pressure 116/87, oxygen saturation 99% on room air. GENERAL: A cachectic, thin woman who appears older than her stated age, no acute distress. LUNGS: Poor air movement with scattered expiratory wheezing, no crackles. CARDIOVASCULAR: Normal rate, irregularly irregular. Normal S1 and S2. No murmurs. ABDOMEN: Soft and nontender. EXTREMITIES: No edema. CARDIAC MEDICATIONS: 1. Metoprolol tartrate 25 mg p.o. q.6 h. 2. Aspirin 81 mg p.o. daily. 3. Lisinopril 5 mg p.o. daily. 4. Atorvastatin 20 mg p.o. nightly. 5. Furosemide 40 mg IV b.i.d. LABORATORY DATA: WBC 13.9, hemoglobin 11, hematocrit 35.2, platelets 263,000. Sodium 139, potassium 3.7, chloride 90, CO2 of 38, BUN 53, creatinine 1.14. TELEMETRY: Atrial fibrillation, rate controlled. IMPRESSION 1. Acute systolic heart failure. 2. Paroxysmal atrial fibrillation, rate controlled. 3. Severe chronic obstructive pulmonary disease with chronic obstructive pulmonary disease exacerbation. 4. Suspected gastrointestinal bleeding. 5. Hypertension, controlled. 6. Moderate tricuspid regurgitation. 7. Moderate mitral regurgitation. RECOMMENDATIONS: Continue current cardiac medications. The patient will need to be transitioned to metoprolol succinate upon discharge. Watch creatinine closely as it is climbing. We may need to hold her MINOO inhibitor if it climbs further. Given elevated BNP, continue diuresis. May need a more gentle diuretic regimen if renal function continues to worsen. Given recent anemia, she is not a candidate for anticoagulation at this time. Continue low-dose aspirin. We will reassess her bleeding risk as an outpatient to determine if she may be started on anticoagulation at that point. Continue current cardiac medications. Otherwise, the patient has declined comfort care. Thank you for this consult. We will continue to follow. Job#: [id number]
[2018-01-01] MEDS: FLUCONAZOLE 200 MG/100 ML 100 ML IV SCH (15:47)
[2018-01-01 16:29] LABS: ABG HCO3 38 mmol/L (23-28); ABG PCO2 61 mmHg (41-51); ABG PO2 122 mmHg (80-105)
[2018-01-01] MEDS: ATORVASTATIN 20 MG TAB PO SCH (20:57)
[2018-01-02] VITALS: BP 122/91
[2018-01-02] MEDS: MORPHINE SULFATE 2 MG/ML SYR IV PRN ×3 (01:10→13:55)
[2018-01-02] MEDS: ALBUTEROL/IPRATROPIUM 3 ML NEB NEB PRN ×3 (03:40→10:42)
[2018-01-02 04:00] VITALS: BP 135/88
[2018-01-02] MEDS: METOPROLOL TARTRATE 25 MG TAB PO SCH ×4 (05:45→17:29)
[2018-01-02 05:50] LABS: BASOPHILS % 0.1 % (0.0-1.0); HEMATOCRIT 35.7 % (34.2-44.1); LYMPHOCYTES # (AUTO) 0.3 (1.0-3.2); LYMPHOCYTES % 2.3 % (18.0-39.1); MEAN CORPUSCULAR HEMOGLOBIN 27.6 pg (28-32); MEAN CORPUSCULAR HGB CONC 30.8 g/dL (31-35); MEAN CORPUSCULAR VOLUME 89.5 fL (81-99); MONOCYTES # (AUTO) 0.6 (0.2-0.8); MONOCYTES % 4.1 % (4.4-11.3); NEUTROPHILS # (AUTO) 13.5 (2.1-6.9); NEUTROPHILS % 92.4 % (38.7-80.0); PLATELET COUNT 273 x10e3/uL (140-360); RED BLOOD COUNT 3.99 x10e6/uL (3.6-5.1); RED CELL DISTRIBUTION WIDTH 18.1 % (11.7-14.4)
[2018-01-02 06:10] LABS: ALBUMIN 3.2 g/dL (3.5-5.0); ANION GAP 13.4 mmol/L (8-16); CALCIUM 9.2 mg/dL (8.4-10.2); CREATININE, SERUM 1.08 mg/dL (0.57-1.11); POTASSIUM 3.4 mmol/L (3.5-5.1)
--- NOTE | 2018-01-02 06:30 | Diagnostic Imaging Report ---
EXAM: CHEST SINGLE (PORTABLE), AP 1 view INDICATION: CHF COMPARISON: PA and lateral view of the chest December 29, 2017 FINDINGS: LINES/TUBES: Stable position of right approach PICC LUNGS: Persistent bibasilar atelectasis, vascular congestion and mild interstitial edema PLEURA: Stable small right and trace left pleural effusion HEART AND MEDIASTINUM: Stable cardiomegaly BONES AND SOFT TISSUES: No acute findings. IMPRESSION: No interval change Signed by: Dr. Stephanie Daugherty M.D. on 01/02/2018 6:27 AM
[2018-01-02] MEDS: SALMETEROL/FLUTICASONE 250/50 INH SCH (07:07)
[2018-01-02 07:44] VITALS: BP 136/83
[2018-01-02] MEDS: GUAIFENESIN 600 MG TAB PO SCH ×2 (08:02→17:29)
[2018-01-02] MEDS: FUROSEMIDE INJ 10 MG/ML 4 ML VIAL IV SCH ×2 (08:02→17:29)
[2018-01-02] MEDS: ASPIRIN 81 MG CHEW TAB PO SCH (08:02)
[2018-01-02] MEDS: BUPROPION HCL 75 MG TAB PO SCH ×2 (08:02→17:29)
[2018-01-02] MEDS: LISINOPRIL 10 MG TAB PO SCH (08:02)
[2018-01-02] MEDS: FERROUS SULFATE 325 MG TAB PO SCH ×2 (08:02→17:29)
[2018-01-02] MEDS: GABAPENTIN 300 MG CAP PO SCH ×3 (08:02→20:52)
[2018-01-02] MEDS: METHYLPREDNISOLONE SOD SUCC 40 MG/ML VIAL IV SCH ×2 (08:02→20:52)
[2018-01-02] MEDS ORDERED: FLUCONAZOLE 200 MG/100 ML 100 ML IV STA (08:02)
[2018-01-02] MEDS: DOCUSATE SODIUM 100 MG CAP PO SCH (08:02)
[2018-01-02] MEDS: PANTOPRAZOLE SOD 40 MG TABEC PO SCH (08:02)
[2018-01-02] MEDS ORDERED: MAGNESIUM HYDROXIDE 30 ML UDC PO ONE (09:30)
[2018-01-02] MEDS ORDERED: POTASSIUM CHLORIDE 20 MEQ TAB CR PO ONE (12:30)
[2018-01-02 17:16] VITALS: BP 112/76
--- NOTE | 2018-01-02 17:41 | Progress Note ---
DATE: January 02, 2018 CARDIOLOGY PROGRESS NOTE SUBJECTIVE: The patient endorses some chest pain today as well as shortness of breath. OBJECTIVE VITAL SIGNS: Temperature 97.7 degrees, pulse 78, respiratory rate 16, blood pressure 136/83, oxygen saturation 98% on 2 liters nasal cannula. GENERAL: A cachectic, thin woman who appears older than her stated age, no acute distress. LUNGS: Poor air movement with scattered expiratory wheezing, no crackles. CARDIOVASCULAR: Normal rate, irregularly irregular. Normal S1 and S2. No murmurs. ABDOMEN: Soft and nontender. EXTREMITIES: No edema. CARDIAC MEDICATIONS: 1. Metoprolol tartrate 25 mg p.o. q.6 h. 2. Aspirin 81 mg p.o. daily. 3. Lisinopril 5 mg p.o. daily. 4. Atorvastatin 20 mg p.o. nightly. 5. Furosemide 40 mg IV b.i.d. LABORATORY DATA: WBC 14.56, hemoglobin 11, hematocrit 35.7, platelets 273,000, sodium 140, potassium 3.4, chloride 92, CO2 of 38, BUN 52, creatinine 1.08, BNP 3524. TELEMETRY: Atrial fibrillation. IMPRESSION 1. Acute systolic heart failure. 2. Paroxysmal atrial fibrillation, rate controlled. 3. Severe chronic obstructive pulmonary disease with chronic obstructive pulmonary disease exacerbation. 4. Suspected gastrointestinal bleeding. 5. Hypertension, controlled. 6. Moderate tricuspid regurgitation. 7. Moderate mitral regurgitation. RECOMMENDATIONS: Continue current cardiac medications. She will need to be transitioned to metoprolol succinate upon discharge. Creatinine has improved. Continue MINOO inhibitor and current diuretics. BNP remains quite elevated. Monitor volume status. Given her recent anemia, she is not a candidate for anticoagulation at this time. Continue low-dose aspirin. We will reassess her bleeding risk as an outpatient to determine if she may be started on anticoagulation at that point. Trend cardiac enzymes. Obtain EKG. Given her suspected GI bleeding, she is not a candidate for invasive cardiac evaluation at this time. Plan for ischemic evaluation as an outpatient. Thank you for this consult. We will continue to follow. Job#: [id number]
[2018-01-02] MEDS: ATORVASTATIN 20 MG TAB PO SCH (20:52)
[2018-01-02 21:12] VITALS: BP 111/74
[2018-01-02 23:09] LABS: CREATINE KINASE MB 2.3 ng/mL (0-5.0)
[2018-01-03] MEDS: METOPROLOL TARTRATE 25 MG TAB PO SCH ×3 (00:20→11:50)
[2018-01-03] MEDS: MORPHINE SULFATE 2 MG/ML SYR IV PRN ×2 (00:20→11:50)
[2018-01-03 00:53] VITALS: BP 129/94
[2018-01-03 05:15] VITALS: BP 111/82
[2018-01-03 05:36] LABS: BASOPHILS % 0.1 % (0.0-1.0); HEMATOCRIT 34.9 % (34.2-44.1); HEMOGLOBIN 10.8 g/dL (12.0-16.0); LYMPHOCYTES # (AUTO) 0.4 (1.0-3.2); LYMPHOCYTES % 2.5 % (18.0-39.1); MEAN CORPUSCULAR HEMOGLOBIN 27.6 pg (28-32); MEAN CORPUSCULAR HGB CONC 30.9 g/dL (31-35); MEAN CORPUSCULAR VOLUME 89.3 fL (81-99); MONOCYTES # (AUTO) 0.3 (0.2-0.8); MONOCYTES % 2.4 % (4.4-11.3); NEUTROPHILS # (AUTO) 13.4 (2.1-6.9); NEUTROPHILS % 94.2 % (38.7-80.0); PLATELET COUNT 255 x10e3/uL (140-360); RED BLOOD COUNT 3.91 x10e6/uL (3.6-5.1); RED CELL DISTRIBUTION WIDTH 18.4 % (11.7-14.4)
[2018-01-03 05:58] LABS: CALCIUM 9.2 mg/dL (8.4-10.2)
[2018-01-03 06:21] LABS: CREATINE KINASE MB 2.5 ng/mL (0-5.0)
[2018-01-03] MEDS: ALBUTEROL/IPRATROPIUM 3 ML NEB NEB PRN (07:32)
[2018-01-03 08:00] VITALS: BP 128/90
[2018-01-03] MEDS ORDERED: FLUCONAZOLE 200 MG/100 ML 100 ML IV SCH (08:15)
[2018-01-03 08:20] VITALS: BP 128/90
[2018-01-03] MEDS: DOCUSATE SODIUM 100 MG CAP PO SCH (08:25)
[2018-01-03] MEDS: GABAPENTIN 300 MG CAP PO SCH (08:25)
[2018-01-03] MEDS: FERROUS SULFATE 325 MG TAB PO SCH (08:25)
[2018-01-03] MEDS: ASPIRIN 81 MG CHEW TAB PO SCH (08:25)
[2018-01-03] MEDS: GUAIFENESIN 600 MG TAB PO SCH (08:25)
[2018-01-03] MEDS: METHYLPREDNISOLONE SOD SUCC 40 MG/ML VIAL IV SCH (08:25)
[2018-01-03] MEDS: FUROSEMIDE INJ 10 MG/ML 4 ML VIAL IV SCH (08:25)
[2018-01-03] MEDS: PANTOPRAZOLE SOD 40 MG TABEC PO SCH (08:26)
[2018-01-03] MEDS: LISINOPRIL 10 MG TAB PO SCH (08:26)
[2018-01-03] MEDS: BUPROPION HCL 75 MG TAB PO SCH (08:26)
[2018-01-03] MEDS ORDERED: MAGNESIUM HYDROXIDE 30 ML UDC PO SCH (09:00)
[2018-01-03 12:00] VITALS: BP 124/58
[2018-01-03] MEDS ORDERED: DIFLUCAN200 MG PO (14:15)
[2018-01-03] MEDS ORDERED: PANTOPRAZOLE SO40 MG PO (14:16)
[2018-01-03] MEDS ORDERED: IRON325 M1 PO (14:17)
[2018-01-03] MEDS ORDERED: METOPROLOL TART50 MG PO (14:17)
[2018-01-03] MEDS ORDERED: duoneb INH (14:19)
[2018-01-03] MEDS ORDERED: ASPIR 8181 MG PO (14:20)
[2018-01-03] MEDS ORDERED: LIPITOR20 MG PO (14:21)
[2018-01-03] MEDS ORDERED: LISINOPRIL10 MG PO (14:22)
[2018-01-03] MEDS ORDERED: LORAZEPAM0.5 MG PO (14:24)
[2018-01-03] MEDS ORDERED: FUROSEMIDE40 MG PO (14:25)
--- NOTE | 2018-01-03 15:10 | Discharge Summary ---
ADMITTING DIAGNOSES 1. Acute respiratory failure. 2. Chronic obstructive pulmonary disease exacerbation. 3. Kxegu-yc-juqwirz diastolic congestive heart failure. 4. Efxjt-hr-hvarfkp bronchitis. DISCHARGE DIAGNOSES 1. Chronic obstructive pulmonary disease exacerbation, resolving. 2. Severe chronic obstructive pulmonary disease. 3. Chronic respiratory failure (oxygen dependent). 4. Ojvmt-cp-ycleykw bronchitis, resolving. 5. Acute bronchitis, resolving. 6. Rrqjv-wp-pckebay diastolic congestive heart failure. 7. Pulmonary hypertension. 8. Anemia of chronic disease and iron deficiency anemia. 9. Depression. 10. Anxiety disorder. 11. Status post esophagogastroduodenoscopy. 12. Esophageal candidiasis. 13. Tobacco abuse. 14. Status post blood transfusion (2 units). 15. Gzmsg-ek-byygwxi anemia secondary to upper gastrointestinal bleeding. HOSPITAL COURSE: This 62-year-old white woman was initially admitted to [facility] with diagnosis of acute respiratory failure secondary to COPD exacerbation from acute bronchitis. COPD exacerbation improved with intravenous methylprednisolone and nebulized bronchodilators. The patient was also seen by cardiology because of lvqqw-ca-fmrpvtq diastolic congestive heart failure and pulmonary hypertension. Patient underwent an echocardiogram during this hospital stay which revealed findings consistent with pulmonary hypertension and diastolic heart failure and with a diminished left ventricular ejection fraction of 35% to 40%. 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 During this hospitalization patient received intravenous fluconazole for at least 10 days in regards to the jacqueline infection. The patient was seen by rotor winder during this hospitalization, namely Dr. Benjy Marmolejo. Patient was also seen by programs director, Dr. Chris Hayward, because of upper gastrointestinal bleeding. The patient, on upper endoscopy, had findings consistent with esophageal candidiasis as well as gastritis. The Helicobacter pylori test however was negative for this patient. It was also negative for malignancy. However the esophageal brushing did reveal a fungal esophagitis compatible with jacqueline species. The brushings from the esophagus and stomach also were negative for malignancy. During this hospitalization patient had iron studies done which revealed findings consistent of iron deficiency anemia. During this hospitalization patient was transfused 2 units of blood. During this hospitalization the patient's hemoccult stool was positive. Patient's condition at discharge was stable but she has an overall guarded prognosis. DISCHARGE MEDICATIONS 1. Advair Diskus inhaler 250/50 one puff b.i.d. 2. Lasix 40 mg daily. 3. Doxycycline 100 mg b.i.d. for 10 more days. 4. Fluconazole 200 mg daily for 14 days. 5. Prednisone taper over the next 20 days. 6. Lisinopril 10 mg daily. 7. Lorazepam 0.5 mg b.i.d. for anxiety, 30 prescribed, no refills. 8. Atorvastatin 20 mg nightly. 9. Gabapentin 300 mg t.i.d. 10. DuoNeb q.i.d. scheduled. 11. Aspirin 81 mg daily. 12. Iron sulfate 325 mg b.i.d. 13. Bupropion 150 mg b.i.d. 14. Protonix 40 mg daily. 15. Metoprolol tartrate 50 mg b.i.d. FOLLOWUP INSTRUCTIONS: Patient is instructed to follow up with her primary care physician, namely Dr. Amy Antonio, within the next 1 to 2 weeks. The patient was instructed to follow up with her rotor winder, namely Dr. Benjy Marmolejo, in 1 to 2 weeks and with her extras casting director, namely Dr. Ribera, in the 2 to 3 weeks. Prior to discharge, skilled home health nursing with home physical therapy was arranged. ELVIN HASTINGS MD Job#: [id number] DG cc:MD AMY PADRON DO KAUSHAL V. PATEL, FEL
--- NOTE | 2018-01-03 18:44 | Progress Note ---
DATE: January 03, 2018 CARDIOLOGY PROGRESS NOTE SUBJECTIVE: No major events overnight. The patient's breathing is subjectively a lot better today. Plan for discharge home today, and the patient is very happy about this. OBJECTIVE VITAL SIGNS: Temperature 94.1, pulse 87, respiratory rate 18, blood pressure 124/58, satting 100% on 3 liters nasal cannula. GENERAL: Cachectic, frail, elderly white female. CARDIOVASCULAR: PMI sustained and laterally displaced. Normal S1 and S2. No murmurs, rubs, or gallops. Palpable carotid pulses. Palpable pedal pulses. Palpable radial pulses. LUNGS: Poor air movement with scattered expiratory wheezes, no crackles. ABDOMEN: Soft, nontender, nondistended. No hepatosplenomegaly. NEURO AND PSYCH: Alert and oriented to person, place and time. Normal affect. CARDIAC MEDICATIONS: Reviewed. LABORATORY DATA: Reviewed. TELEMETRY DATA: Shows atrial fibrillation. ASSESSMENT 1. Acute systolic and diastolic heart failure. 2. Paroxysmal atrial fibrillation, rate controlled. 3. Severe chronic obstructive pulmonary disease with chronic obstructive pulmonary disease exacerbation. 4. Suspected gastrointestinal bleeding. 5. Hypertension. 6. Moderate tricuspid regurgitation. 7. Moderate mitral regurgitation. RECOMMENDATIONS: The patient is okay to be discharged home from a cardiovascular standpoint on the regimen of aspirin 81 daily, atorvastatin 20 nightly, furosemide 40 mg p.o. b.i.d., metoprolol succinate 100 mg daily, and lisinopril 5 mg daily. She will follow up with her primary care physician as well as a food and drug research scientist for ongoing pulmonary and other medical issues. From a cardiovascular standpoint, she needs an ischemic evaluation for her new diagnosis of cardiomyopathy and risk factors as well as long-term anticoagulation for paroxysmal atrial fibrillation. However, given her frailty and recent suspected acute gastrointestinal bleeding and anemia, will hold off until we evaluate her as an outpatient. Discussed with the patient regarding chest pain and ER precautions if having chest discomfort that does not improve after 5-10 minutes at rest. Thank you for this consult consultation. To follow up with me in clinic in 2 weeks. Job#: [id number]
== END 2018-01-03 14:54 | disposition home health service (06) | DRG 190 ==
LOC: MED/SURG3 22:44
PROC: 02HV33Z Insertion of Infusion Device into Superior Vena Cava, Percutaneous Approach (ICD-10-PCS; principal; 2017-12-25)
PROC: 30243P1 Transfusion of Nonautologous Frozen Red Cells into Central Vein, Percutaneous Approach (ICD-10-PCS; principal; 2017-12-25)
PROC: 0D758ZZ Dilation of Esophagus, Via Natural or Artificial Opening Endoscopic (ICD-10-PCS; 2017-12-29)
PROC: 0DB78ZX Excision of Stomach, Pylorus, Via Natural or Artificial Opening Endoscopic, Diagnostic (ICD-10-PCS; 2017-12-29)
PROC: 0D958ZX Drainage of Esophagus, Via Natural or Artificial Opening Endoscopic, Diagnostic (ICD-10-PCS; 2017-12-29)
DX: J44.1 Chronic obstructive pulmonary disease with (acute) exacerbation (principal); K29.71 Gastritis, unspecified, with bleeding; I50.43 Acute on chronic combined systolic (congestive) and diastolic (congestive) heart failure; J96.20 Acute and chronic respiratory failure, unspecified whether with hypoxia or hypercapnia; B37.81 Candidal esophagitis; D62 Acute posthemorrhagic anemia; I13.0 Hypertensive heart and chronic kidney disease with heart failure and stage 1 through stage 4 chronic kidney disease, or unspecified chronic kidney disease; J20.9 Acute bronchitis, unspecified; J44.0 Chronic obstructive pulmonary disease with (acute) lower respiratory infection; D63.8 Anemia in other chronic diseases classified elsewhere; F41.9 Anxiety disorder, unspecified; I27.20 Pulmonary hypertension, unspecified; K44.9 Diaphragmatic hernia without obstruction or gangrene; R13.10 Dysphagia, unspecified; I48.0 Paroxysmal atrial fibrillation; Z79.01 Long term (current) use of anticoagulants; I08.1 Rheumatic disorders of both mitral and tricuspid valves; I25.5 Ischemic cardiomyopathy; N18.9 Chronic kidney disease, unspecified; E11.22 Type 2 diabetes mellitus with diabetic chronic kidney disease; F17.290 Nicotine dependence, other tobacco product, uncomplicated
CPT/HCPCS: 36415; 36430; 36569; 36600; 43235; 43239; 43450; 71045; 71046; 71250; 71260; 76937; 80048; 80053; 82103; 82270; 82550; 82553; 82607; 82728; 82746; 82805; 83540; 83735; 83880; 84466; 84484; 85014; 85018; 85025; 85045; 86850; 86900; 86920; 87070; 87106; 87205; 88305; 88312; 93005; 93306; 94640; J1450; J1940; J2001; J2270; J2920; J7050; P9016; Q9967